=== PATIENT | female | born 1950 | race Caucasian/White ===

== ENCOUNTER 2023-08-16 08:47 | Outpatient (OUT) | payer MEDICARE, OTHER, SELFPAY ==
--- NOTE | 2023-08-16 08:59 | MM_ITS ---
Patient Name: HIRA POLO MR#: [id number] : 1950 Exam Date: 08/16/2023 Ordering Doctor: DR WOLF LEONARD M.D. RADIOLOGY REPORT PROCEDURE: MM TOMOSYNTHESIS SCREENING BI COMPARISON: MG MAMM SCREEN 3D KECIA CAD, 06/29/2022. MG MAMM SCREEN 3D [facility]IA CAD, 02/26/2021. MG MAMM SCREEN K[facility]IA W CAD, 12/12/2019. MG MAMM KECIA SCRN W CAD DIG, 04/08/2014. INDICATIONS: Screening Calculator Name NCI Breast Cancer Risk Assessment Tool 5 Year Breast Cancer Risk 2.00% Lifetime Breast Cancer Risk 4.80% Personal Breast Cancer No Personal Ovarian Cancer No Treatments None Family Cancers Father with stomach cancer at age 68; Mother with lymphoma cancer at age 83; Sister with throat cancer at age 55. LOCATION: [facility] BREAST COMPOSITION: The breasts are almost entirely fatty. FINDINGS: DIAGNOSTIC CATEGORY 1--NEGATIVE. RIGHT BREAST: No significant suspicious finding. No significant change has occurred. LEFT BREAST: No significant suspicious finding. No significant change has occurred. RECOMMENDATIONS: ROUTINE MAMMOGRAM AND CLINICAL EVALUATION IN 12 MONTHS. PLEASE NOTE: A NORMAL MAMMOGRAM DOES NOT EXCLUDE THE POSSIBILITY OF BREAST CANCER. A CLINICALLY SUSPICIOUS PALPABLE LUMP SHOULD BE BIOPSIED. Dictated by: Antony Lal M.D. on 08/17/2023 at 12:11 Approved by: Antony Lal M.D. on 08/17/2023 at 12:17
--- NOTE | 2023-08-16 09:04 | CT_ITS ---
[address] [address] Patient Name: HIRA POLO MRN: [id number] date: 1950 Sex: F Assigned Patient Location: MAMMO Current Patient Location: MAMMO Accession/Order Number: [id number] Exam Date: 08/16/2023 09:28 Report Date: 08/16/2023 11:59 At the request of: WOLF LEONARD Procedure: CT lung screening low-dose EXAMINATION: CT lung screening low-dose HISTORY: History Of Tobacco Dependence Z87.891 COMPARISON: CT LUNG CANCER SCREENING 06/29/2022, 02/26/2021, 10/30/2019 TECHNIQUE: Axial, Coronal, and Sagittal images were created without the administration of IV contrast material. Dose reduction techniques were achieved by using automated exposure control and/or adjustment of mA and/or kV according to patient size and/or use of iterative reconstruction technique. FINDINGS: LUNGS: Stable small area of stranding, likely scarring within anterior lateral aspect of right lower lobe just below level of the hilum. A few scattered granulomas. PLEURA: No mass, effusion, or pneumothorax. VASCULATURE: No abnormality. RACHEL: Calcified lymph nodes compatible with chronic granulomatous disease. MEDIASTINUM: Calcified lymph nodes. CARDIAC: No enlargement, pericardial thickening, or pericardial effusion. AORTA: No aneurysm or dissection. CHEST WALL: No mass or axillary adenopathy BONES: No bone lesion or fracture. LIMITED ABDOMEN: Moderate-large hiatal hernia. Limited images of the upper abdomen. OTHER: Negative. CT/CT lung screening low-dose IMPRESSION: 1. Lung-RADS 2- Benign Appearance or Behavior. Nodules with a very low likelihood of becoming a clinically active cancer due to size or lack of growth. Follow-up CT Chest in 1 year. Electronically authenticated by: BURAK RYAN Date: 08/16/2023 11:59
== END 2023-08-16 08:48 | disposition home or self-care (01) ==
LOC: MAMMO 08:47
PROVIDERS: PCP Family Medicine; Visit Provider Family Medicine
DX: Z12.31 Encounter for screening mammogram for malignant neoplasm of breast (principal); Z87.891 Personal history of nicotine dependence; Z80.0 Family history of malignant neoplasm of digestive organs; Z80.7 Family history of other malignant neoplasms of lymphoid, hematopoietic and related tissues; Z80.8 Family history of malignant neoplasm of other organs or systems
CPT/HCPCS: 71271; 77063; 77067

== ENCOUNTER 2024-11-06 12:30 | Outpatient (OUT) | payer MEDICARE, OTHER, SELFPAY ==
--- OUTSIDE RECORDS SUMMARY | 2023-09-07 06:37 | XMS_ITS | Continuity of Care Document ---
Author Organization [employer] [facility] Address [address] [facility] [place] [address] Phone Care Team Providers Care Adjunct Instructor Of Women'S Studies Name Role Phone Jourdan Sweet MD Unavailable Unavailable Allergies, Adverse Reactions, Alerts Substance Reaction Status Criticality PENICILLIN Active No Information Medications Medication Instructions Dosage Effective Dates (start - stop) Status Comments clindamycin HCl 300 mg capsule take 2 capsule by oral route every 1 hour before any dental procedure - Active omeprazole 40 mg capsule,delayed release take 1 capsule by oral route every day before a meal 40 MG - Active gabapentin 300 mg capsule take 1 capsule by oral route 3 times every day 300 MG - Active diclofenac sodium 75 mg tablet,delayed release take 1 tablet by oral route 2 times every day 75 MG - Active zinc sulfate 50 mg zinc (220 mg) tablet - Active Vitamin D3 25 mcg (1,000 unit) tablet - Active Multiple Vitamins tablet - Active Calcium 500 500 mg calcium (1,250 mg) chewable tablet - Active Procedures Procedure Date POSTOP FOLLOW-UP VISIT ([facility]) Betamethasone 6MG 4 DRAIN/INJECT, JOINT/BURSA OFFICE/OUTPATIENT VISIT, EST POSTOP FOLLOW-UP VISIT POSTOP FOLLOW-UP VISIT REVISE/REPLACE KNEE JOINT POSTOP FOLLOW-UP VISIT POSTOP FOLLOW-UP VISIT TOTAL KNEE ARTHROPLASTY CPTR-ASST DIR MS PX TOTAL KNEE ARTHROPLASTY OFFICE/OUTPATIENT VISIT, [facility] X-ray Exam Of Knee, 3 Views (Right Or Le ft) X-ray Exam Of Knee, 3 Views (Right Or Le ft) Advance Directives Directive Yes / No Effective Date File Name No Information Encounters Encounter Description Practice Location Reason(s) For Visit Diagnoses Date Provider Providers Copied on Encounter [facility] [employer] [facility], [address] [place] [address] [address], [place], [place], [id number] , [place] tel: [phone] [facility] No Information 4 Kee Soliman. [address] [facility] [address], [place], [place], [id number] , [place]. tel: [phone] [employer] [facility], [address] [facility] [address], [place], [place], [address] , [place] tel: [phone] [facility] Follow Up of Post-Op (chief complaint) Bilateral primary OA of kneeDehiscenc e of internal surgical wound, initial encounter 4 Kee Soliman. [address] [facility] [address], [place], [place], [id number] , [place]. tel: [phone] Referring Provider: Jourdan Daley, [address], [place], [address] . tel:[phone] OFFICE/OUTPA TIENT VISIT, [facility] [employer] [facility], [address] [facility] [address], [place], [place], [address] , [place] tel: [phone] [facility] Post-Op (chief complaint) Bilateral primary OA of knee 4 Leobardo Hernandez. [address], [place], [place], [id number] , [place]. tel:[phone] Referring Provider: David Booth PA-C, [address], [place], [address] . tel:[phone] [employer] [facility], [address] [facility] [address], [place], [place], [address] , [place] tel: [phone] [facility] Post-Op (chief complaint) Bilateral primary OA of kneeDehiscenc e of internal surgical wound, initial encounter 4 Leobardo Hernandez. [address], [place], [place], [address] , [place]. tel: [phone] Referring Provider: David Booth PA-C, [address], [place], [address] . tel:[phone] [facility] [employer] [facility], [address] [place] [address] [address], [place], [place], [address] , [place] tel: [phone] [facility] Follow Up of Post-Op (chief complaint) Bilateral primary OA of kneeDehiscenc e of internal surgical wound, initial encounter 3 Kee Soliman. [address], [place], [place], [address] , [place]. tel: [phone] Referring Provider: Jourdan Daley, [address], [place], [address] . tel:[phone] [employer] [facility], [address] [place] [address] [address], [place], [place], [address] , [place] tel: [phone] [facility] Bilateral primary OA of knee 3 Kee Soliman. [address], [place], [place], [address] , [place]. tel: [phone] [employer] [facility], [address] [place] [address] Road [address], [place], [place], [address] , [place] tel: [phone] [facility] OP No Information 3 Kee Soliman. [address], [place], [place], [address] , [place]. tel: [phone] Referring Provider: Jourdan Daley, [address], [place], [address] . tel:[phone] [employer] [facility], [address], [place], [address] , [place] tel: [phone] [facility] Follow Up of Post-Op (chief complaint) Bilateral primary OA of kneeDehiscenc e of internal surgical wound, initial encounter 3 Leobardo Hernandez. [address], [place], [place], [address] , [place]. tel: [phone] Referring Provider: David Booth PA-C, [address], [place], [address] . tel:[phone] [employer] [facility], [address], [place], [place], [address] , [place] tel: [phone] [facility] Post-Op (chief complaint) Bilateral primary OA of knee 3 Leobardo Hernandez. [address], [place], [place], [address] , [place]. tel:[phone] Referring Provider: David Booth PA-C, [address], [place], [address] . tel:[phone] [employer] [facility], [address], [place], [place], [address] , [place] tel: [phone] [facility] IP No Information 3 Kee Soliman. [address], [place], [place], [address] , [place]. tel:[phone] Referring Provider: Jourdan Daley, [address], [place], [address] . tel:[phone] [employer] [facility], [address], [place], [place], [address] , [place] tel: [phone] [facility] IP No Information 3 Leobardo Hernandez. [address], [place], [place], [address] , [place]. [phone] Referring Provider: David Booth PA-C, [address], [place], [address] . tel:[phone] OFFICE/OUTPA TIENT VISIT, [facility] [employer] [facility], [address] [facility] [address], [place], [place], [address] , [place] [phone] [facility] Musculoskeleta l Pain (chief complaint) Bilateral primary OA of knee 3 Kee Soliman. [address] [facility] [address], [place], [place], [address] , [place]. tel:[phone] Referring Provider: Jourdan Daley, [address] [facility] [address], [place], [address] . tel:[phone] Family History Family Member Type Diagnosis Age At Onset Problem Family history of Hypertensi on Problem Family history of Cancer, ga nik Problem Family history of Diabetes m vandana Problem Family history of Cardiovasc ular disease Payers Payer name Insurance type Covered republican ID Authoriza tion(s) Medicare MB [id number] [employer] [id number] Social History Type Description Quantity Date Captured Comments Alcohol Use Details Unknown Caffeine Use Details Unknown Tobacco Use Status Smoking Status No Information Sex Female Chief Complaint And Reason For Visit No Information Reason For Referral Reason For Referral No Information Plan Of Treatment Date Type Action Status Referral Ordered: Physical Therapy (related to Bilateral primary OA of knee) ordered Referral Ordered: Physical Therapy (related to Bilateral primary OA of knee) ordered Referral Referred To: Physical Therapy Ordered: Referrals: Physical Therapy. Evaluate and treat ordered Referral Ordered: X-ray Exam Of Knee, 3 Views (Right Or Left) ordered History Of Present Illness Encounter Date Complaint History Of Prese nt Illness Follow Up of Post-Op The patient reports pain in the Left knee. The pain level is 4/10. The patient is using medication. The patient reports no complications with the wound. The patient can ambulate without a device. Associated symptoms include swelling, weakness and tightness. Pertinent negatives include calf tenderness, chest pain, chills, constipation, fever and nausea. Additional information: She is 4 months s/p Left TKA on 03/06/23 with I&D and Arthrotomy repair on 04/05/23. Patient states she is having pain in the Left knee, stems from her back radiates to her hip and knee. She is taking Tylenol as needed for pain. Post-Op The patient repo rts pain. The pain level is 2/10. The patient is using medication as prescribed and having good response. The patient reports no complications with the wound. The patient can ambulate with straight cane. Associated symptoms include swelling. Pertinent negatives include numbness and tingling. Additional information: 3 week f/u 6 weeks s/p Left knee arthrotomy dehiscence repair on 04/05/23. Continues w/ HEP. Had a bad experience w/ PT and hyperflexed her knee so hasn't seen PT in about 1 week. Worst pain 3/10 w/ twisting and steps She would like a Right knee CSI today. Taking gabapentin and diclofenac. Needs a tooth fixed and wants to know if she can get it fixed. Has appt. for May. Post-Op The patient repo rts pain in the Left knee. The pain level is 0/10. The patient is using medication as needed and having good response. The patient can ambulate with cane. Associated symptoms include swelling. Pertinent negatives include chest pain, chills, fever, nausea and vomiting. Additional information: 1 week f/u, she is 3 weeks s/p Left knee I&D, poly exchange, + arthrotomy repair on 04/05/23. She has done light PT with the sutures in. Pain with activity can reach 3-4/10, relieved with Tylenol [place] Gabapentin. Follow Up of Post-Op The patient reports pain in the Left knee. The pain level is 3/10. The patient is using medication as needed The patient reports no complications with the wound. Associated symptoms include swelling. Pertinent negatives include chest pain, chills, constipation, dyspnea, fever, nausea and vomiting. Additional information: 2 weeks s/p Left TKA I&D, poly exchange, and arthrotomy closure on 04/05/2023. She is not getting PT. She is taking Tylenol as needed for pain. She start PT next week. Follow Up of Post-Op The patient reports pain in the Left knee. The pain level is 0/10. The patient is using medication and having good response. The patient can ambulate with walker PRN. Associated symptoms include swelling, popping, joint instability, weakness and. Pertinent negatives include chills, constipation and nausea. Additional information: 4 weeks s/p Left TKA on 03/06/23, She continues outpatient PT and is progressing well. She reports a shifting or movement in the knee, fells like something is moving out and popping back in, states its sharp pain she rates 10/10. . She is currently using an bakari bandage wrapped around her knee and lower leg. Post-Op The patient repo rts pain in the Left TKA. The pain level is 2/10. The patient is using medication and having good response. The patient can ambulate with cane. Associated symptoms include swelling. Pertinent negatives include chest pain, chills, constipation, fever, nausea and vomiting. Additional information: 9 days s/p Left TKA on 03/06/2023, She is getting in home PT and will be discharged on Monday and needs outpatient orders. She is taking Percocet as needed and the gabapentin as prescribed. She had a blister that popped on the medial aspect of the lower leg. Musculoskeletal Pain Onset: grad ual. Duration: varies. Severity level is 3. Location: bilateral knee. Context: there is no injury. The pain is aggravated by movement and standing. The pain is relieved by injection, OTC medicines (acetaminophen), rest, gabapentin and Diclofenac. Associated symptoms include decreased mobility, joint instability, joint tenderness, popping and weakness. Additional information: Longstanding Bilateral knee pain gradually worsening. She had CSI of michael knees 1 month ago, reports moderate improvements. lasting 2-3 months. She rates worst pain 10/10. She has a h/o spinal fusion and sees pain management for LBP. Functional Status Date Functional Assessmen t No Information Instructions Date Instruction Additional Infor miri Sonali is a 73-year -old female, 4 months status post left robotic assisted total knee arthroplasty and 3 months status post arthrotomy irrigation and closure.The patient has been doing physical therapy home exercises and has noticed improvement of her symptoms we at this point she is completely asymptomatic rating her pain as 0/10 . She is walking full weight-bearing with a cane. She is noticing exacerbation of the pain on her right knee. I discussed with the patient importance to continue active to maintain range of motion and strength as well as we discussed pre dental antibiotics We will see her back in 2 months for a 6 months follow-up to do a 1st x-ray of her left knee three views. The patient agreed with the plan all the questions were answered to her satisfaction. I am very glad that she was able to regain motion even though she had a tear over the arthrotomy which usually those patients have some limitation of the motion. Related to Bilateral primary OA of knee Patient returns for recheck of bilateral knees. She is approximately 3 months status post left total knee replacement in 4 weeks status post arthrotomy dehiscence repair. Patient is doing very well overall at this time she reports minimal pain. She has 4 sessions remaining of physical therapy she able to achieve about 115 of flexion and full extension in physical therapy. She reports minimal pain in the knee time.She does note some worsening right knee pain. She has longstanding history of osteoarthritis of the right knee and previously had corticosteroid injection about 6 months ago. She reports she is noticed returning pain over the past few weeks to the right knee.At this time I recommended a corticosteroid injection to the right knee in our office today. Patient agreed with the plan in the injection was performed in the office today under sterile conditions. Patient tolerated the procedure well.In regards to left knee I want her to continue working on home exercises as fall as finish her last few sessions of physical therapy. We discussed the importance of continuing daily home exercise program for knee motion and strength.Follow-up in our office in 4 weeks for final recheck with Dr. Sweet. Related to Bilateral primary OA of knee Patient returns for recheck of left knee she is almost 3 months status post left total knee replacement and 2 weeks status post left knee arthrotomy repair. She is doing very well overall she reports minimal pain at this time other than some mild lateral knee pain with knee flexion she reports snapping and dislocating sensation of the kneecap has completely resolved since surgery. She started working with physical therapy and has an appointment tonight.On physical exam surgical incision was well healing without signs of infection. Sutures were removed in the office today. Patient tolerated the procedure well. No palpable tears in her arthrotomy incision and improving range of motion of the knee.We discussed at this time I want her to and slowly and progressively with physical therapy working on knee flexion and extension we discussed the importance of gentle progression with her range of motion at this time. She should also continue daily home exercise program. We discussed surgical wound care instructions as well.Follow-up in our office in 3 weeks for recheck after therapy. Related to Dehiscence of internal surgical wound, initial encounter Sonali is a 72-year -old female, history of left knee arthrotomy tear that it was repaired surgical. The patient is coming today for 1st postop evaluation. She is walking full weight-bearing with a walker with the knee in full extension. After removal of the dressing that when interacting with no signs of active bleeding no bruising no bruising no signs of infection. She has mild flexion of the knee her compartments are soft and she is neurovascular distally intact. I discussed with the patient and her sister that this point we going to start next week physical therapy to regain range of motion and strength. We will see her back in a week to remove the stitches and see how she is doing. The patient agreed with the plan all questions were answered to her satisfaction. Related to Bilateral primary OA of knee Patient presents for recheck of left knee she is 4 weeks status post left total knee replacement. She is noticed some worsening knee pain with snapping and clicking sensation. She notes snapping sensation around the patella with flexion and extension of knee which causes significant pain. She notes 2 weeks ago she was taking her dog out when she sat down she felt a popping sensation in the knee. Evette have too much issues for a few days after that however recently she is noticed significant worsening of symptoms with popping and pain occurring multiple times a day.On physical exam she has a palpable tear of her arthrotomy which was not present at previous visit. She still has good active extension of the knee but she has subluxation of the patella with knee flexion and extension.We discussed at this time she has signs and symptoms of arthrotomy tear of the left knee. We discussed she will require open surgical repair of her torn arthrotomy in over to regain function of the knee. We reviewed the surgical procedure as well as risks associated with surgery including but not limited to infection, blood loss, vascular injury, nerve injury, pain, stiffness, blood clots, losing the leg, and . We discussed the high risk for postop stiffness after this type of procedure.We discussed she will remain in a knee immobilizer for 4-6 weeks after surgery.Follow-up in our office 7-10 days postoperatively for postop recheck. Related to Dehiscence of internal surgical wound, initial encounter Patient returns for recheck of left knee she is 12 days status post left total knee replacement. Doing well overall. She has been working with home physical therapy on range of motion strengthening of the knee but would like to start outpatient physical therapy next week. She reports only mild pain at this time. Taking narcotic pain medication only twice daily.On physical exam surgical incision is well healing without signs of infection. She has about 100 of flexion and full extension without pain good active extension of the knee.Discussed at this time I want her to continue working with physical therapy on range of motion strengthening of the knee as well as doing daily home exercise program. We will send order for outpatient physical therapy to start next week. We reviewed surgical care instructions. She can transition to Tylenol and return to her previous dose of gabapentin for pain control at this time. She is following with her shipyard painter helper in a few weeks.Follow-up in our office in 3 weeks for recheck. Related to Bilateral primary OA of knee Sonali is a 72-year -old female, history of long-standing bilateral knee pain that has been conservative treatment in another institution. She recently had a cortisone injection about a month ago with minimal improvement of the symptoms. The patient is noticing deterioration of her quality of life and limitation her activities of daily living. She is more symptomatic on the left and wants to discuss a surgical procedure.We review x-ray findings.The patient has severe arthritic changes that are more severe on the left side.We discussed at length a robotic assisted total knee arthroplasty as well as we discussed with Isaura our microbiology coordinator risks and benefits of the procedure including but not limited to anesthesia problems, infection, clots, stiffness, residual pain, fractures, loosening, need for further procedures, leg discrepancy, nerve injuries, vascular injury, losing the leg and . The patient voices understanding of the risks and decided to go ahead with surgeryShe has history of lower back pain and spinal stenosis. Related to Bilateral primary OA of knee Assessments Type Assessment Date No Information Patient Care Teams Name Effective Dates (start - stop) Status Members No Information
--- OUTSIDE RECORDS SUMMARY | 2024-11-06 12:41 | XMS_ITS | Encounter Summary ---
Author Organization [facility] Address [address] [place] [address] Care Team Providers Care Electrical Assembly Technician Name Role Phone Rosmery Dodd MD Primary Care Provider [phone] Rosmery Dodd MD Unavailable Monday, Kimberly SEARCH ENGINE OPTIMIZATION MANAGER Unavailable [phone] Pari Burk RN Unavailable Viera, Elva SEARCH ENGINE OPTIMIZATION MANAGER Unavailable Encounter Details Date Type Department Care Team (Late st Contact Info) Description 03/01/2023 Abstract [facility] 112 [facility] 110 [place] [phone] Rosmery Dodd MD [address] [facility] 110 [place], [place] [id number] Social History Tobacco Use Types Packs/Day Years Used Date Smoking Tobacco: Former Cigarettes Q uit: 07/23/2021 Alcohol Use Standard Drinks/Week Comments Yes 0 (1 standard drink = 0.6 oz pure alcohol) Alcohol: 2-4 times a month. Caffeine Intake: none PHQ-2 Answer Date Recorded Patient Health Questionnaire-2 Score 0 02/04/2023 Education Answer Date Recorded What is the highest level of school you have completed or the highest degree you have received? High school graduate 09/08/2022 Comments Unknown Sex and Gender Information Value Date Recorded Sex Assigned at Female 09/05/2022 3:12 PM EDT Legal Sex Female 6:47 PM EDT Gender Identity Female 09/05/2022 3:12 PM EDT Sexual Orientation Not on file documented as of this encounter Plan of Treatment Not on file documented as of this encounter Visit Diagnoses Not on filedocumented in this encounter Care Teams Electrical Assembly Technician Relationship Specialty Start Date End Date Rosmery Dodd MD [address] [place] [address] PCP - General Family Medicine 09/15/22 Rosmery Dodd MD [address] [place] [address] PCP - ACO Reach 09/15/22Monday, SKINNY Harris [address] [place] [address] Licensed Practical Nurse Family Medicine 12/07/23 Pari Burk RN [address] [place] [address] Licensed Practical Nurse Family Medicine 05/31/2407/12 Elva Viera LPN [address] [facility] 110 [place] [address] 07/12/24 documented as of this encounter
--- OUTSIDE RECORDS SUMMARY | 2024-11-06 12:41 | XMS_ITS | Encounter Summary ---
Author Organization [facility] Address [address] [place] [address] Care Team Providers Care Wire Border Assembler Name Role Phone Rosmery Dodd MD Primary Care Provider [phone] Rosmery Dodd MD Unavailable Monday, Kimberly GUEST REQUEST RUNNER Unavailable [phone] Pari Burk RN Unavailable Viera, Elva GUEST REQUEST RUNNER Unavailable Encounter Details Date Type Department Care Team (Late st Contact Info) Description 03/20/[address] [facility] [address] [facility] 110 [place] [address] Rosmery Dodd MD 112 [facility] 110 [place], [place] [address] Social History Tobacco Use Types Packs/Day Years Used Date Smoking Tobacco: Former Cigarettes Q uit: 07/23/2021 Alcohol Use Standard Drinks/Week Comments Yes 0 (1 standard drink = 0.6 oz pure alcohol) Alcohol: 2-4 times a month. Caffeine Intake: none B1300 Health Literacy Answer Date Recor ded How often do you need to hav e someone help you when you read instructions, pamphlets, or other written material from your doctor or pharmacy? Never 01/15/2024 PHQ-2 Answer Date Recorded Patient Health Questionnaire-2 Score 0 02/04/2023 Hunger Vital Sign Answer Date Recorded Within the past 12 months, y ou worried that your food would run out before you got the money to buy more. Never true 01/15/20 24 Within the past 12 months, t he food you bought just didn't last and you didn't have money to get more. Never true 01/15/2024 PRAPARE - Transportation Answer Date Re corded In the past 12 months, has l ack of transportation kept you from medical appointments or from getting medications? No 12/24 In the past 12 months, has l ack of transportation kept you from meetings, work, or from getting things needed for daily living? No 01/15/2024 Education Answer Date Recorded What is the [...] Diagnoses Not on filedocumented in this encounter Additional Health Concerns Assessment Noted Time PHQ-9 Depression Total Score: 0 07/12/19 24 3:00 PM EDT documented as of this encounter Care Teams Wire Border Assembler Relationship Specialty Start Date End Date Rosmery Dodd MD [address] [place] [address] PCP - General Family Medicine 09/15/22 Rosmery Dodd MD [address] [place] [address] PCP - ACO Reach 09/15/22MondayKimberly LPN [address] [place] [address] Licensed Practical Nurse Family Medicine 12/07/23 Pari Burk, RN [address] [place] [address] Licensed Practical Nurse Family Medicine 05/31/2407/12 Elva Viera LPN [address] [place] [address] 07/12/24 documented as of this encounter
--- OUTSIDE RECORDS SUMMARY | 2024-11-06 12:41 | XMS_ITS | Encounter Summary ---
Author Organization [facility] Address [address] [place] [address] Care Team Providers Care Calender Supervisor Name Role Phone Rosmery Dodd MD Primary Care Provider [phone] Rosmery Dodd MD Unavailable Monday, Kimberly SEROLOGIST Unavailable [phone] Pari Burk RN Unavailable Viera, Elva SEROLOGIST Unavailable Encounter Details Date Type Department Care Team (Late st Contact Info) Description 04/05/2024 Abstract [facility] 112 [facility] 110 [place] [address] Rosmery Dodd MD 112 [facility] 110 [place], [place] [address] Social History Tobacco Use Types Packs/Day Years [...] documented as of this encounter Care Teams Calender Supervisor Relationship Specialty Start Date End Date Rosmery Dodd MD [address] [place] [address] PCP - General Family Medicine 09/15/22 Rosmery Dodd MD [address] [place] [address] PCP - ACO Reach 09/15/22MondayKimberly LPN [address] [place] [address] Licensed Practical Nurse Family Medicine 12/07/23 Pari Burk, RN [address] [place] [address] Licensed Practical Nurse Family Medicine 05/31/2407/12 Elva Viera LPN [address] [place] [address] 07/12/24 documented as of this encounter
--- OUTSIDE RECORDS SUMMARY | 2024-11-06 12:41 | XMS_ITS | Encounter Summary ---
Author Organization [facility] Address [address] [place] [address] Care Team Providers Care Dietary Server Name Role Phone Rosmery Dodd MD Primary Care Provider [phone] Rosmery Dodd MD Unavailable Monday, Kimberly WINDOWS SYSTEMS ARCHITECT Unavailable [phone] Pari Burk RN Unavailable [phone] Viera, Elva WINDOWS SYSTEMS ARCHITECT Unavailable Encounter Details Date Type Department Care Team (Late st Contact Info) Description 03/20/2024 Abstract [facility] 112 [facility] 110 [place] [address] Rosmery Dodd MD 112 [facility] 110 [place], [place] [address] Social History Tobacco Use Types Packs/Day Years [...] documented as of this encounter Care Teams Dietary Server Relationship Specialty Start Date End Date Rosmery Dodd MD [address] [place] [address] PCP - General Family Medicine 09/15/22 Rosmery Dodd MD [address] [place] [address] PCP - ACO Reach 09/15/22MondayKimberly LPN [address] [place] [address] Licensed Practical Nurse Family Medicine 12/07/23 Pari Burk, RN [address] [place] [address] Licensed Practical Nurse Family Medicine 05/31/2407/12 Elva Viera LPN [address] [place] [address] 07/12/24 documented as of this encounter
--- OUTSIDE RECORDS SUMMARY | 2024-11-06 12:41 | XMS_ITS | Encounter Summary ---
Author Organization [facility] Address [address] [place] [address] Care Team Providers Care Practice Advisor Name Role Phone Rosmery Dodd MD Primary Care Provider [phone] Rosmery Dodd MD Unavailable Monday, Kimberly TOMBSTONE ERECTOR HELPER Unavailable Pari Burk RN Unavailable Viera, Elva TOMBSTONE ERECTOR HELPER Unavailable Encounter Details Date Type Department Care Team (Late st Contact Info) Description 04/02/2024 Abstract [facility] 112 [facility] 110 [place] [address] Rosmery Dodd MD 112 [facility] 110 [place], [place] [address] Social History Tobacco Use Types Packs/Day Years [...] documented as of this encounter Care Teams Practice Advisor Relationship Specialty Start Date End Date Rosmery Dodd MD [address] [place] [address] PCP - General Family Medicine 09/15/22 Rosmery Dodd MD [address] [place] [address] PCP - ACO Reach 09/15/22MondayKimberly LPN [address] [place] [address] Licensed Practical Nurse Family Medicine 12/07/23 Pari Burk, RN [address] [place] [address] Licensed Practical Nurse Family Medicine 05/31/2407/12 Elva Viera LPN [address] [place] [address] 07/12/24 documented as of this encounter
--- OUTSIDE RECORDS SUMMARY | 2024-11-06 12:41 | XMS_ITS | Encounter Summary ---
Author Organization [facility] Address [address] [place] [address] Care Team Providers Care Associate Professor Of English Name Role Phone Rosmery Dodd MD Primary Care Provider [phone] Rosmery Dodd MD Unavailable Monday, Kimberly ARTILLERY OFFICER Unavailable [phone] Pari Burk RN Unavailable Viera, Elva ARTILLERY OFFICER Unavailable Encounter Details Date Type Department Care Team (Late st Contact Info) Description 05/09/2024 Abstract [facility] 112 [facility] 110 [place] [address] Rosmery Dodd MD 112 [facility] 110 [place], [place] [address] Social History Tobacco Use Types Packs/Day Years [...] documented as of this encounter Care Teams Associate Professor Of English Relationship Specialty Start Date End Date Rosmery Dodd MD [address] [place] [address] PCP - General Family Medicine 09/15/22 Rosmery Dodd MD [address] [place] [address] PCP - ACO Reach 09/15/22MondayKimberly LPN [address] [place] [address] Licensed Practical Nurse Family Medicine 12/07/23 Pari Burk, RN [address] [place] [address] Licensed Practical Nurse Family Medicine 05/31/2407/12 Elva Viera LPN [address] [place] [address] 07/12/24 documented as of this encounter
--- OUTSIDE RECORDS SUMMARY | 2024-11-06 12:41 | XMS_ITS | Encounter Summary ---
Author Organization [facility] Address [address] [place] [address] Care Team Providers Care Washtub Worker Helper Name Role Phone Rosmery Dodd MD Primary Care Provider [phone] Rosmery Dodd MD Unavailable Monday, Kimberly BELL HOLE DIGGER Unavailable [phone] Pari Burk RN Unavailable [phone] Viera, Elva BELL HOLE DIGGER Unavailable Encounter Details Date Type Department Care Team (Late st Contact Info) Description 04/22/2024 Abstract [facility] 112 [facility] 110 [place] [address] Rosmery Dodd MD 112 [facility] 110 [place], [place] [address] Social History Tobacco Use Types Packs/Day Years [...] documented as of this encounter Care Teams Washtub Worker Helper Relationship Specialty Start Date End Date Rosmery Dodd MD [address] [place] [address] PCP - General Family Medicine 09/15/22 Rosmery Dodd MD [address] [place] [address] PCP - ACO Reach 09/15/22MondayKimberly LPN [address] [place] [address] Licensed Practical Nurse Family Medicine 12/07/23 Pari Burk, RN [address] [place] [address] Licensed Practical Nurse Family Medicine 05/31/2407/12 Elva Viera LPN [address] [place] [address] 07/12/24 documented as of this encounter
--- OUTSIDE RECORDS SUMMARY | 2024-11-06 12:41 | XMS_ITS | Encounter Summary ---
Author Organization [facility] Address [address] [place] [address] Care Team Providers Care Manager Assurance Name Role Phone Rosmery Dodd MD Primary Care Provider [phone] Rosmery Dodd MD Unavailable Elva Viera LPN Unavailable Encounter Details Date Type Department Care Team (Late st Contact Info) Description 08/01/2024 Abstract [facility] 112 [facility] 110 [place] [address] Rosmery Dodd MD 112 [facility] 110 [place], [place] [address] Social History Tobacco Use Types Packs/Day Years [...] Time PHQ-9 Depression Total Score: 0 07/12/19 3:00 PM EDT documented as of this encounter Care Teams Manager Assurance Relationship Specialty Start Date End Date Rosmery Dodd MD [address] [address] PCP - General Family Medicine 09/15/22 Rosmery Dodd MD [address] [facility] 110 [place] [address] PCP - ACO Reach 09/15/22 Elva Viera LPN [address] [address] 07/12/24 documented as of this encounter
--- OUTSIDE RECORDS SUMMARY | 2024-11-06 12:41 | XMS_ITS | Encounter Summary ---
Author Organization [facility] Address [address] [place] [address] Care Team Providers Care Clinic Administrator Name Role Phone Rosmery Dodd MD Primary Care Provider [phone] Rosmery Dodd MD Unavailable Monday, Kimberly MANAGER PATIENT Unavailable [phone] Pari Burk RN Unavailable Viera, Elva MANAGER PATIENT Unavailable Encounter Details Date Type Department Care Team (Late st Contact Info) Description 05/27/2024 Abstract [facility] 112 [facility] 110 [place] [address] Rosmery Dodd MD 112 [facility] 110 [place], [place] [address] Social History Tobacco Use Types Packs/Day Years [...] documented as of this encounter Care Teams Clinic Administrator Relationship Specialty Start Date End Date Rosmery Dodd MD [address] [place] [address] PCP - General Family Medicine 09/15/22 Rosmery Dodd MD [address] [place] [address] PCP - ACO Reach 09/15/22MondayKimberly LPN [address] [place] [address] Licensed Practical Nurse Family Medicine 12/07/23 Pari Burk, RN [address] [place] [address] Licensed Practical Nurse Family Medicine 05/31/2407/12 Elva Viera LPN [address] [place] [address] 07/12/24 documented as of this encounter
--- OUTSIDE RECORDS SUMMARY | 2024-11-06 12:41 | XMS_ITS | Encounter Summary ---
Author Organization [facility] Address [address] [place] [address] Care Team Providers Care Supervisor Framing Mill Name Role Phone Rosmery Dodd MD Primary Care Provider [phone] Rosmery Dodd MD Unavailable Monday, Kimberly CONE WINDER Unavailable [phone] Pari Burk RN Unavailable Viera, Elva CONE WINDER Unavailable Encounter Details Date Type Department Care Team (Late st Contact Info) Description 05/02/2024 Abstract [facility] [address] [facility] 110 [place] [address] Rosmery Dodd MD 112 [facility] 110 [place], [place] [address] Social History Tobacco Use Types Packs/Day Years [...] documented as of this encounter Care Teams Supervisor Framing Mill Relationship Specialty Start Date End Date Rosmery Dodd MD [address] [place] [address] PCP - General Family Medicine 09/15/22 Rosmery Dodd MD [address] [place] [address] PCP - ACO Reach 09/15/22MondayKimberly LPN [address] [place] [address] Licensed Practical Nurse Family Medicine 12/07/23 Pari Burk, RN [address] [place] [address] Licensed Practical Nurse Family Medicine 05/31/2407/12 Elva Viera LPN [address] [place] [address] 07/12/24 documented as of this encounter
--- OUTSIDE RECORDS SUMMARY | 2024-11-06 12:41 | XMS_ITS | Encounter Summary ---
Author Organization [facility] Address [address] [place] [address] Care Team Providers Care Yarder Operator Name Role Phone Rosmery Dodd MD Primary Care Provider [phone] Rosmery Dodd MD Unavailable Monday, Kimberly DECORATIVE ENGRAVER Unavailable [phone] Pari Burk RN Unavailable [phone] Viera, Elva DECORATIVE ENGRAVER Unavailable Encounter Details Date Type Department Care Team (Late st Contact Info) Description 04/08/2024 Abstract [facility] 112 [facility] 110 [place] [address] Rosmery Dodd MD 112 [facility] 110 [place], [place] [address] Social History Tobacco Use Types Packs/Day Years [...] documented as of this encounter Care Teams Yarder Operator Relationship Specialty Start Date End Date Rosmery Dodd MD [address] [place] [address] PCP - General Family Medicine 09/15/22 Rosmery Dodd MD [address] [place] [address] PCP - ACO Reach 09/15/22MondayKimberly LPN [address] [place] [address] Licensed Practical Nurse Family Medicine 12/07/23 Pari Burk, RN [address] [place] [address] Licensed Practical Nurse Family Medicine 05/31/2407/12 Elva Viera LPN [address] [place] [address] 07/12/24 documented as of this encounter
--- OUTSIDE RECORDS SUMMARY | 2024-11-06 12:41 | XMS_ITS | Encounter Summary ---
Author Organization [facility] Address [address] [place] [address] Care Team Providers Care Brazing Machine Operator Helper Name Role Phone Rosmery Dodd MD Primary Care Provider [phone] Rosmery Dodd MD Unavailable Monday, Kimberly EXECUTIVE OFFICER SPECIAL WARFARE TEAM Unavailable [phone] Pari Burk RN Unavailable Viera, Elva EXECUTIVE OFFICER SPECIAL WARFARE TEAM Unavailable Encounter Details Date Type Department Care Team (Late st Contact Info) Description 04/02/2024 Abstract [facility] 112 [facility] 110 [place] [address] Rosmery Dodd MD 112 [facility] 110 [place], [place] [address] Social History Tobacco Use Types Packs/Day Years [...] documented as of this encounter Care Teams Brazing Machine Operator Helper Relationship Specialty Start Date End Date Rosmery Dodd MD [address] [place] [address] PCP - General Family Medicine 09/15/22 Rosmery Dodd MD [address] [place] [address] PCP - ACO Reach 09/15/22MondayKimberly LPN [address] [place] [address] Licensed Practical Nurse Family Medicine 12/07/23 Pari Burk, RN [address] [place] [address] Licensed Practical Nurse Family Medicine 05/31/2407/12 Elva Viera LPN [address] [place] [address] 07/12/24 documented as of this encounter
--- OUTSIDE RECORDS SUMMARY | 2024-11-06 12:41 | XMS_ITS | Encounter Summary ---
Author Organization [facility] Address [address] [place] [address] Care Team Providers Care Personalized Living Assistant Name Role Phone Rosmery Dodd MD Primary Care Provider [phone] Rosmery Dodd MD Unavailable Monday, Kimberly JOB SETTER HONING Unavailable [phone] Pari Burk RN Unavailable [phone] Viera, Elva JOB SETTER HONING Unavailable Encounter Details Date Type Department Care Team (Late st Contact Info) Description 03/20/2024 Abstract [facility] 112 [facility] 110 [place] [address] Rosmery Dodd MD 112 [facility] 110 [place], [place] [address] Social History Tobacco Use Types Packs/Day Years [...] documented as of this encounter Care Teams Personalized Living Assistant Relationship Specialty Start Date End Date Rosmery Dodd MD [address] [place] [address] PCP - General Family Medicine 09/15/22 Rosmery Dodd MD [address] [place] [address] PCP - ACO Reach 09/15/22MondayKimberly LPN [address] [place] [address] Licensed Practical Nurse Family Medicine 12/07/23 Pari Burk, RN [address] [place] [address] Licensed Practical Nurse Family Medicine 05/31/2407/12 Elva Viera LPN [address] [place] [address] 07/12/24 documented as of this encounter
--- OUTSIDE RECORDS SUMMARY | 2024-11-06 12:41 | XMS_ITS | Encounter Summary ---
Author Organization [facility] Address [address] [place] [address] Care Team Providers Care Rail Grinder Name Role Phone Rosmery Dodd MD Primary Care Provider [phone] Rosmery Dodd MD Unavailable Monday, Kimberly REIMBURSEMENT SPEC Unavailable [phone] Pari Burk RN Unavailable [phone] Viera, Elva REIMBURSEMENT SPEC Unavailable Encounter Details Date Type Department Care Team (Late st Contact Info) Description 05/27/2024 Abstract [facility] 112 [facility] 110 [place] [address] Rosmery Dodd MD 112 [facility] 110 [place], [place] [address] Social History Tobacco Use Types Packs/Day Years [...] documented as of this encounter Care Teams Rail Grinder Relationship Specialty Start Date End Date Rosmery Dodd MD [address] [place] [address] PCP - General Family Medicine 09/15/22 Rosmery Dodd MD [address] [place] [address] PCP - ACO Reach 09/15/22MondayKimberly LPN [address] [place] [address] Licensed Practical Nurse Family Medicine 12/07/23 Pari Burk, RN [address] [place] [address] Licensed Practical Nurse Family Medicine 05/31/2407/12 Elva Viera LPN [address] [place] [address] 07/12/24 documented as of this encounter
--- OUTSIDE RECORDS SUMMARY | 2024-11-06 12:42 | XMS_ITS | Encounter Summary ---
Author Organization [facility] Address [address] [place] [address] Care Team Providers Care Community Relations Director Name Role Phone Rosmery Dodd MD Primary Care Provider [phone] Rosmery Dodd MD Unavailable Monday, Kimberly QUANTITATIVE MANAGER Unavailable [phone] Pari Burk RN Unavailable Viera, Elva QUANTITATIVE MANAGER Unavailable Encounter Details Date Type Department Care Team (Late st Contact Info) Description 03/13/2024 Abstract [facility] 112 [facility] 110 [place] [address] Rosmery Dodd MD 112 [facility] 110 [place], [place] [address] Social History Tobacco Use Types Packs/Day Years [...] documented as of this encounter Care Teams Community Relations Director Relationship Specialty Start Date End Date Rosmery Dodd MD [address] [place] [address] PCP - General Family Medicine 09/15/22 Rosmery Dodd MD [address] [place] [address] PCP - ACO Reach 09/15/22MondayKimberly LPN [address] [place] [address] Licensed Practical Nurse Family Medicine 12/07/23 Pari Burk, RN [address] [place] [address] Licensed Practical Nurse Family Medicine 05/31/2407/12 Elva Viera LPN [address] [place] [address] 07/12/24 documented as of this encounter
--- OUTSIDE RECORDS SUMMARY | 2024-11-06 12:42 | XMS_ITS | Encounter Summary ---
Author Organization [facility] Address [address] [place] [place] [address] Care Team Providers Care Internetworking Technician Name Role Phone Rosmery Dodd MD Primary Care Provider [phone] Rosmery Dodd MD Unavailable Monday, Kimberly POCKET FLAP CREASING MACHINE OPERATOR Unavailable [phone] Pari Burk RN Unavailable Viera, Elva POCKET FLAP CREASING MACHINE OPERATOR Unavailable Encounter Details Date Type Department Care Team (Late st Contact Info) Description 02/19/2024 Abstract [facility] 112 [facility] 110 [place] [address] Rosmery Dodd MD 112 [facility] 110 [place], [place] [address] Social History Tobacco Use Types Packs/Day Years [...] documented as of this encounter Care Teams Internetworking Technician Relationship Specialty Start Date End Date Rosmery Dodd MD [address] [place] [address] PCP - General Family Medicine 09/15/22 Rosmery Dodd MD [address] [place] [address] PCP - ACO Reach 09/15/22MondayKimberly LPN [address] [place] [address] Licensed Practical Nurse Family Medicine 12/07/23 Pari Burk, RN [address] [place] [address] Licensed Practical Nurse Family Medicine 05/31/2407/12 Elva Viera LPN [address] [place] [address] 07/12/24 documented as of this encounter
--- OUTSIDE RECORDS SUMMARY | 2024-11-06 12:42 | XMS_ITS | Encounter Summary ---
Author Organization [facility] Address [address] [place] [address] Care Team Providers Care Executive Candidate Developer Name Role Phone Rosmery Dodd MD Primary Care Provider [phone] Rosmery Dodd MD Unavailable Monday, Kimberly PARTS REPRESENTATIVE Unavailable [phone] Pari Burk RN Unavailable [phone] Viera, Elva PARTS REPRESENTATIVE Unavailable Encounter Details Date Type Department Care Team (Late st Contact Info) Description 03/20/2024 Abstract [facility] 112 [facility] 110 [place] [address] Rosmery Dodd MD 112 [facility] 110 [place], [place] [address] Social History Tobacco Use Types Packs/Day Years [...] documented as of this encounter Care Teams Executive Candidate Developer Relationship Specialty Start Date End Date Rosmery Dodd MD [address] [place] [address] PCP - General Family Medicine 09/15/22 Rosmery Dodd MD [address] [place] [address] PCP - ACO Reach 09/15/22MondayKimberly LPN [address] [place] [address] Licensed Practical Nurse Family Medicine 12/07/23 Pari Burk, RN [address] [place] [address] Licensed Practical Nurse Family Medicine 05/31/2407/12 Elva Viera LPN [address] [place] [address] 07/12/24 documented as of this encounter
--- OUTSIDE RECORDS SUMMARY | 2024-11-06 12:42 | XMS_ITS | Encounter Summary ---
Author Organization [facility] Address [address] [place] [address] Care Team Providers Care Flanging Operator Name Role Phone Rosmery Dodd MD Primary Care Provider [phone] Rosmery Dodd MD Unavailable Monday, Kimberly SOUND RANGING CREWMEMBER Unavailable [phone] Pari Burk RN Unavailable Viera, Elva SOUND RANGING CREWMEMBER Unavailable Encounter Details Date Type Department Care Team (Late st Contact Info) Description 02/27/2024 Abstract [facility] 112 [facility] 110 [place] [address] Rosmery Dodd MD 112 [facility] 110 [place], [place] [address] Social History Tobacco Use Types Packs/Day Years [...] documented as of this encounter Care Teams Flanging Operator Relationship Specialty Start Date End Date Rosmery Dodd MD [address] [place] [address] PCP - General Family Medicine 09/15/22 Rosmery Dodd MD [address] [place] [address] PCP - ACO Reach 09/15/22MondayKimberly LPN [address] [place] [address] Licensed Practical Nurse Family Medicine 12/07/23 Pari Burk, RN [address] [place] [address] Licensed Practical Nurse Family Medicine 05/31/2407/12 Elva Viera LPN [address] [place] [address] 07/12/24 documented as of this encounter
--- OUTSIDE RECORDS SUMMARY | 2024-11-06 12:42 | XMS_ITS | Encounter Summary ---
Author Organization [facility] Address [address] [place] [address] Care Team Providers Care Supervisor Toy Parts Former Name Role Phone Rosmery Dodd MD Primary Care Provider [phone] Rosmery Dodd MD Unavailable Monday, Kimberly TELEPHONIC NURSE Unavailable [phone] Pari Burk RN Unavailable [phone] Viera, Elva TELEPHONIC NURSE Unavailable Encounter Details Date Type Department Care Team (Late st Contact Info) Description 01/17/2024 Abstract [facility] 112 [facility] 110 [place] [address] Rosmery Dodd MD 112 [facility] 110 [place], [place] [address] Social History Tobacco Use Types Packs/Day Years [...] as of this encounter Care Teams Supervisor Toy Parts Former Relationship Specialty Start Date End Date Rosmery Dodd MD [address] [place] [address] PCP - General Family Medicine 09/15/22 Rosmery Dodd MD [address] [place] [address] PCP - ACO Reach 09/15/22MondayKimberly LPN [address] [place] [address] Licensed Practical Nurse Family Medicine 12/07/23 Pari Burk, RN [address] [place] [address] Licensed Practical Nurse Family Medicine 05/31/2407/12 Elva Viera LPN [address] [place] [address] 07/12/24 documented as of this encounter
--- OUTSIDE RECORDS SUMMARY | 2024-11-06 12:42 | XMS_ITS | Encounter Summary ---
Author Organization [facility] Address [address] [place] [address] Care Team Providers Care Roll On Man Name Role Phone Rosmery Dodd MD Primary Care Provider [phone] Rosmery Dodd MD Unavailable Monday, Kimberly METAL DEALER Unavailable [phone] Pari Burk RN Unavailable Viera, Elva METAL DEALER Unavailable Encounter Details Date Type Department Care Team (Late st Contact Info) Description 09/19/2023 Abstract [facility] 112 [facility] 110 [place] [address] Rosmery Dodd MD 112 [facility] 110 [place], [place] [address] Social History Tobacco Use Types Packs/Day Years [...] documented as of this encounter Care Teams Roll On Man Relationship Specialty Start Date End Date Rosmery Dodd MD [address] [place] [address] PCP - General Family Medicine 09/15/22 Rosmery Dodd MD [address] [place] [address] PCP - ACO Reach 09/15/22MondayKimberly LPN [address] [place] [address] Licensed Practical Nurse Family Medicine 12/07/23 Pari Burk, RN [address] [place] [address] Licensed Practical Nurse Family Medicine 05/31/2407/12 Elva Viera LPN [address] [place] [address] 07/12/24 documented as of this encounter
--- OUTSIDE RECORDS SUMMARY | 2024-11-06 12:42 | XMS_ITS | Encounter Summary ---
Author Organization [facility] Address [address] [place] [address] Care Team Providers Care Plaster Applicator Name Role Phone Rosmery Dodd MD Primary Care Provider [phone] Rosmery Dodd MD Unavailable Monday, Kimberly SERVICE ARCHITECT Unavailable [phone] Pari Burk RN Unavailable [phone] Viera, Elva SERVICE ARCHITECT Unavailable Encounter Details Date Type Department Care Team (Late st Contact Info) Description 02/20/2023 Abstract [facility] 112 [facility] 110 [place] [address] Rosmery Dodd MD 112 [facility] 110 [place], [place] [address] Social History Tobacco Use Types Packs/Day Years [...] on filedocumented in this encounter Care Teams Plaster Applicator Relationship Specialty Start Date End Date Rosmery Dodd MD [address] [place] [address] PCP - General Family Medicine 09/15/22 Rosmery Dodd MD [address] [place] [address] PCP - ACO Reach 09/15/22Monday, SKINNY Harris [address] [place] [address] Licensed Practical Nurse Family Medicine 12/07/23 Pari Burk RN [address] [place] [address] Licensed Practical Nurse Family Medicine 05/31/2407/12 Elva Viera LPN [address] [facility] 110 [place] [address] 07/12/24 documented as of this encounter
--- OUTSIDE RECORDS SUMMARY | 2024-11-06 12:42 | XMS_ITS | Encounter Summary ---
Author Organization [facility] Address [address] [place] [address] Care Team Providers Care Biology Research Assistant Name Role Phone Rosmery Leonard MD Primary Care Provider [phone] Rosmery Leonard MD Unavailable Monday, Kimberly PERSONAL CARER Unavailable [phone] Pari Burk RN Unavailable [phone] Viera, Elva PERSONAL CARER Unavailable Encounter Details Date Type Department Care Team (Late st Contact Info) Description 08/16/2023 Clinisync Result Encounter [facility] External Department Unsolicited Rosmery Leonard MD [address] [address] Social History Tobacco Use Types Packs/Day Years [...] on file documented as of this encounter Procedures Procedure Name Priority Date/Time Associated Diagnosis Comments CT LUNG SCREENING LOW DOSE 08/16/2023 11:59 AM EDT documented in this encounter Results * CT LUNG SCREENING LOW DOSE (08/16/2023 11:59 AM EDT) Anatomical Region Laterality Modality Other 08/16/2023 11:5 9 AM EDT Narrative 08/16/2023 12:01 [place] [address] CT Scan Report Signed Patient: SONALI POLO MR#: [id number] : 1950 Acct:[id number] Age/Sex: 73 / F ADM Date: 08/16/23 Loc: [facility] Attending Dr: ROSMERY LEONARD Ordering Physician: ROSMERY LEONARD Date of Service: 08/16/23 Procedure(s): CT lung screening low-dose Accession Number(s): [id number] cc: ROSMERY LEONARD [place] [address] Patient Name: SONALI POLO MRN: [id number] date: 1950 Sex: F Assigned Patient Location: [facility]MO Current Patient Location: [facility] Accession/Order Number: [id number] Exam Date: 08/16/2023 09:28 Report Date: 08/16/2023 11:59 At the request of: ORSMERY LEONARD Procedure: CT lung screening low-dose EXAMINATION: CT lung screening low-dose HISTORY: History Of Tobacco Dependence Z87.891 COMPARISON: CT LUNG CANCER SCREENING 06/29/2022, 02/26/2021, 10/30/2019 TECHNIQUE: Axial, Coronal, and Sagittal images were created without the administration of IV contrast material. Dose reduction techniques were achieved by using automated exposure control and/or adjustment of mA and/or kV according to patient size and/or use of iterative reconstruction technique. FINDINGS: LUNGS: Stable small area of stranding, likely scarring within anterior lateral aspect of right lower lobe just below level of the hilum. A few scattered granulomas. PLEURA: No mass, effusion, or pneumothorax. VASCULATURE: No abnormality. RACHEL: Calcified lymph nodes compatible with chronic granulomatous disease. MEDIASTINUM: Calcified lymph nodes. CARDIAC: No enlargement, pericardial thickening, or pericardial effusion. AORTA: No aneurysm or dissection. CHEST WALL: No mass or axillary adenopathy BONES: No bone lesion or fracture. LIMITED ABDOMEN: Moderate-large hiatal hernia. Limited images of the upper abdomen. OTHER: Negative. CT/CT lung screening low-dose IMPRESSION: 1. Lung-RADS 2- Benign Appearance or Behavior. Nodules with a very low likelihood of becoming a clinically active cancer due to size or lack of growth. Follow-up CT Chest in 1 year. Electronically authenticated by: BURAK LAL Date: 08/16/2023 11:59 Dictated By: Burak Lal M.D. Signed By: 08/16/23 1201 DD/ 1159 TD/TT: Financial Services Officer: Procedure Note Radiology, Radiologist, MD - 08/16/2023 [place] [address] CT Scan Report Signed Patient: SONALI POLO LMR#: [id number] : 1950cct:[id number] Age/Sex: 73 / FADM Date: 08/16/23 Loc: [facility] Attending Dr: ROSMERY LEONARD Ordering Physician: ROSMERY LEONARD Date of Service: 08/16/23 Procedure(s): CT lung screening low-dose Accession Number(s): [id number] cc: ROSMERY LEONARD [place] [address] Patient Name: SONALI POLO MRN: [id number] date: 1950 Sex: F Assigned Patient Location: MAMMO Current Patient Location: [facility]MO Accession/Order Number: [id number] Exam Date: 08/16/2023 09:28 Report Date: 08/16/2023 11:59 At the request of: ROSMERY LEONARD Procedure: CT lung screening low-dose EXAMINATION: CT lung screening low-dose HISTORY: History Of Tobacco Dependence Z87.891 COMPARISON: CT LUNG CANCER SCREENING 06/29/2022, 02/26/2021, 10/30/2019 TECHNIQUE: Axial, Coronal, and Sagittal images were created without the administration of IV contrast material. Dose reduction techniques were achieved by using automated exposure control and/or adjustment of mA and/or kV according to patient size and/or use of iterative reconstruction technique. FINDINGS: LUNGS: Stable small area of stranding, likely scarring within anteriorlateral aspect of right lower lobe just below level of the hilum. A few scattered granulomas. PLEURA: No mass, effusion, or pneumothorax. VASCULATURE: No abnormality. RACHEL: Calcified lymph nodes compatible with chronic granulomatous disease. MEDIASTINUM: Calcified lymph nodes. CARDIAC: No enlargement, pericardial thickening, or pericardial effusion. AORTA: No aneurysm or dissection. CHEST WALL: No mass or axillary adenopathy BONES: No bone lesion or fracture. LIMITED ABDOMEN: Moderate-large hiatal hernia. Limited images of the upper abdomen. OTHER: Negative. CT/CT lung screening low-dose IMPRESSION: 1. Lung-RADS 2- Benign Appearance or Behavior. Nodules with a very low likelihood of becoming a clinically active cancer due to size or lack of growth. Follow-up CT Chest in 1 year. Electronically authenticated by: BURAK LAL Date: 08/16/2023 11:59 Dictated By: Burak Lal M.D. Signed By:08/16/23 1201 DD/ 1159 TD/TT: Financial Services Officer: Rosmery Leonard MD [facility] Final Result documented in this encounter Visit Diagnoses Not on filedocumented in this encounter Additional Health Concerns Assessment Noted Time PHQ-9 Depression Total Score: 0 07/12/19 24 3:00 PM EDT documented as of this encounter Care Teams Biology Research Assistant Relationship Specialty Start Date End Date Rosmery Leonard MD [address] [facility] 110 [place] [address] PCP - General Family Medicine 09/15/22 Rosmery Leonard MD [address] [facility] 110 [place] [address] PCP - ACO Reach 09/15/22MondayKimberly LPN [address] [place] [address] Licensed Practical Nurse Family Medicine 12/07/23 Pari Burk, MOLLY [address] [place] [address] Licensed Practical Nurse Family Medicine 05/31/2407/12 Elva Viera LPN 112 [facility] 110 [place] [address] 07/12/24 documented as of this encounter
--- OUTSIDE RECORDS SUMMARY | 2024-11-06 12:42 | XMS_ITS | Encounter Summary ---
Author Organization [facility] Address [address] [place] [address] Care Team Providers Care Circular Knife Machine Cutter Name Role Phone Rosmery Dodd MD Primary Care Provider [phone] Rosmery Dodd MD Unavailable Monday, Kimberly GREASE WORKER Unavailable [phone] Pari Burk RN Unavailable Viera, Elva GREASE WORKER Unavailable Encounter Details Date Type Department Care Team (Late st Contact Info) Description 02/26/2024 Abstract [facility] 112 [facility] 110 [place] [address] Rosmery Dodd MD 112 [facility] 110 [place], [place] [address] Social History Tobacco Use Types Packs/Day Years [...] documented as of this encounter Care Teams Circular Knife Machine Cutter Relationship Specialty Start Date End Date Rosmery Dodd MD [address] [place] [address] PCP - General Family Medicine 09/15/22 Rosmery Dodd MD [address] [place] [address] PCP - ACO Reach 09/15/22MondayKimberly LPN [address] [place] [address] Licensed Practical Nurse Family Medicine 12/07/23 Pari Burk, RN [address] [place] [address] Licensed Practical Nurse Family Medicine 05/31/2407/12 Elva Viera LPN [address] [place] [address] 07/12/24 documented as of this encounter
--- OUTSIDE RECORDS SUMMARY | 2024-11-06 12:42 | XMS_ITS | Encounter Summary ---
Author Organization [facility] Address [address] [place] [address] Care Team Providers Care Net Programmer Analyst Name Role Phone Rosmery Dodd MD Primary Care Provider [phone] Rosmery Dodd MD Unavailable Monday, Kimberly SUPPLY CHAIN SYSTEMS MANAGER Unavailable [phone] Pari Burk RN Unavailable Viera, Elva SUPPLY CHAIN SYSTEMS MANAGER Unavailable Encounter Details Date Type Department Care Team (Late st Contact Info) Description 01/29/2024 Abstract [facility] 112 [facility] 110 [place] [address] Rosmery Dodd MD 112 [facility] 110 [place], [place] [address] Social History Tobacco Use Types Packs/Day Years [...] documented as of this encounter Care Teams Net Programmer Analyst Relationship Specialty Start Date End Date Rosmery Dodd MD [address] [place] [address] PCP - General Family Medicine 09/15/22 Rosmery Dodd MD [address] [place] [address] PCP - ACO Reach 09/15/22MondayKimberly LPN [address] [place] [address] Licensed Practical Nurse Family Medicine 12/07/23 Pari Burk, RN [address] [place] [address] Licensed Practical Nurse Family Medicine 05/31/2407/12 Elva Viera LPN [address] [place] [address] 07/12/24 documented as of this encounter
--- OUTSIDE RECORDS SUMMARY | 2024-11-06 12:42 | XMS_ITS | Encounter Summary ---
Author Organization [facility] Address [address] [place] [address] Care Team Providers Care Electrical Linesworker Name Role Phone Rosmery Dodd MD Primary Care Provider [phone] Rosmery Dodd MD Unavailable Monday, Kimberly PRE PRESS MANAGER Unavailable [phone] Pari Burk RN Unavailable Viera, Elva PRE PRESS MANAGER Unavailable Encounter Details Date Type Department Care Team (Late st Contact Info) Description 11/21/2023 Abstract [facility] [address] [facility] 110 [place] [address] Rosmery Dodd MD 112 [facility] 110 [place], [place] [address] Social History Tobacco Use Types Packs/Day Years [...] documented as of this encounter Care Teams Electrical Linesworker Relationship Specialty Start Date End Date Rosmery Dodd MD [address] [place] [address] PCP - General Family Medicine 09/15/22 Rosmery Dodd MD [address] [place] [address] PCP - ACO Reach 09/15/22MondayKimberly LPN [address] [place] [address] Licensed Practical Nurse Family Medicine 12/07/23 Pari Burk, RN [address] [place] [address] Licensed Practical Nurse Family Medicine 05/31/2407/12 Elva Viera LPN [address] [place] [address] 07/12/24 documented as of this encounter
--- OUTSIDE RECORDS SUMMARY | 2024-11-06 12:42 | XMS_ITS | Encounter Summary ---
Author Organization [facility] Address [address] [place] [address] Care Team Providers Care Fondant Machine Operator Name Role Phone Rosmery Dodd MD Primary Care Provider [phone] Rosmery Dodd MD Unavailable Monday, Kimberly WILDLIFE CONTROL AGENT Unavailable [phone] Pari Burk RN Unavailable [phone] Viera, Elva WILDLIFE CONTROL AGENT Unavailable Encounter Details Date Type Department Care Team (Late st Contact Info) Description 11/22/2023 Abstract [facility] 112 [facility] 110 [place] [address] Rosmery Dodd MD 112 [facility] 110 [place], [place] [address] Social History Tobacco Use Types Packs/Day Years [...] documented as of this encounter Care Teams Fondant Machine Operator Relationship Specialty Start Date End Date Rosmery Dodd MD [address] [place] [address] PCP - General Family Medicine 09/15/22 Rosmery Dodd MD [address] [place] [address] PCP - ACO Reach 09/15/22MondayKimberly LPN [address] [place] [address] Licensed Practical Nurse Family Medicine 12/07/23 Pari Burk, RN [address] [place] [address] Licensed Practical Nurse Family Medicine 05/31/2407/12 Elva Viera LPN [address] [place] [address] 07/12/24 documented as of this encounter
--- OUTSIDE RECORDS SUMMARY | 2024-11-06 12:42 | XMS_ITS | Encounter Summary ---
Author Organization [facility] Address [address] [place] [address] Care Team Providers Care Pediatric Geneticist Name Role Phone Rosmery Dodd MD Primary Care Provider [phone] Rosmery Dodd MD Unavailable Monday, Kimberly HOUSE CARPENTER Unavailable [phone] Pari Burk RN Unavailable Viera, Elva HOUSE CARPENTER Unavailable Encounter Details Date Type Department Care Team (Late st Contact Info) Description 11/06/2023 Abstract [facility] 112 [facility] 110 [place] [address] Rosmery Dodd MD 112 [facility] 110 [place], [place] [address] Social History Tobacco Use Types Packs/Day Years [...] documented as of this encounter Care Teams Pediatric Geneticist Relationship Specialty Start Date End Date Rosmery Dodd MD [address] [place] [address] PCP - General Family Medicine 09/15/22 Rosmery Dodd MD [address] [place] [address] PCP - ACO Reach 09/15/22MondayKimberly LPN [address] [place] [address] Licensed Practical Nurse Family Medicine 12/07/23 Pari Burk, RN [address] [place] [address] Licensed Practical Nurse Family Medicine 05/31/2407/12 Elva Viera LPN [address] [place] [address] 07/12/24 documented as of this encounter
--- OUTSIDE RECORDS SUMMARY | 2024-11-06 12:42 | XMS_ITS | Encounter Summary ---
Author Organization [facility] Address [address] [place] [address] Care Team Providers Care Honing Machine Set Up Operator Name Role Phone Rosmery Dodd MD Primary Care Provider [phone] Rosmery Dodd MD Unavailable Monday, Kimberly NUCLEAR CRITICALITY SAFETY ENGINEER Unavailable [phone] Pari Burk RN Unavailable [phone] Viera, Elva NUCLEAR CRITICALITY SAFETY ENGINEER Unavailable Encounter Details Date Type Department Care Team (Late st Contact Info) Description 10/30/2023 Abstract [facility] 112 [facility] 110 [place] [address] Rosmery Dodd MD 112 [place] [facility] 110 [place], [place] [address] Social History Tobacco Use Types Packs/Day Years [...] documented as of this encounter Care Teams Honing Machine Set Up Operator Relationship Specialty Start Date End Date Rosmery Dodd MD [address] [place] [address] PCP - General Family Medicine 09/15/22 Rosmery Dodd MD [address] [place] [address] PCP - ACO Reach 09/15/22MondayKimberly LPN [address] [place] [address] Licensed Practical Nurse Family Medicine 12/07/23 Pari Burk, RN [address] [place] [address] Licensed Practical Nurse Family Medicine 05/31/2407/12 Elva Viera LPN [address] [place] [address] 07/12/24 documented as of this encounter
--- OUTSIDE RECORDS SUMMARY | 2024-11-06 12:42 | XMS_ITS | Encounter Summary ---
Author Organization [facility] Address [address] [place] [address] Care Team Providers Care Director Health Name Role Phone Rosmery Dodd MD Primary Care Provider [phone] Rosmery Dodd MD Unavailable Monday, Kimberly ELECTRICIAN STATION ASSISTANT Unavailable [phone] Pari Burk RN Unavailable [phone] Viera, Elva ELECTRICIAN STATION ASSISTANT Unavailable Encounter Details Date Type Department Care Team (Late st Contact Info) Description 01/04/2024 Abstract [facility] 112 [facility] 110 [place] [address] Rosmery Dodd MD [address] [facility] 110 [place], [place] [address] Social History Tobacco Use Types Packs/Day Years [...] documented as of this encounter Care Teams Director Health Relationship Specialty Start Date End Date Rosmery Dodd MD [address] [place] [address] PCP - General Family Medicine 09/15/22 Rosmery Dodd MD [address] [place] [address] PCP - ACO Reach 09/15/22MondayKimberly LPN [address] [place] [address] Licensed Practical Nurse Family Medicine 12/07/23 Pari Burk, RN [address] [place] [address] Licensed Practical Nurse Family Medicine 05/31/2407/12 Elva Viera LPN [address] [place] [address] 07/12/24 documented as of this encounter
--- OUTSIDE RECORDS SUMMARY | 2024-11-06 12:42 | XMS_ITS | Encounter Summary ---
Author Organization [facility] Address [address] [place] [address] Care Team Providers Care Compressor Stations Superintendent Name Role Phone Rosmery Dodd MD Primary Care Provider [phone] Rosmery Dodd MD Unavailable Monday, Kimberly LOADER SEMICONDUCTOR DIES Unavailable [phone] Pari Burk RN Unavailable [phone] Viera, Elva LOADER SEMICONDUCTOR DIES Unavailable Encounter Details Date Type Department Care Team (Late st Contact Info) Description 10/09/2023 Abstract [facility] 112 [facility] 110 [place] [phone] Rosmery Dodd MD [address] [place] [facility] 110 [place], [place] [address] Social History Tobacco Use Types Packs/Day Years [...] documented as of this encounter Care Teams Compressor Stations Superintendent Relationship Specialty Start Date End Date Rosmery Dodd MD [address] [place] [address] PCP - General Family Medicine 09/15/22 Rosmery Dodd MD [address] [place] [address] PCP - ACO Reach 09/15/22MondayKimberly LPN [address] [place] [address] Licensed Practical Nurse Family Medicine 12/07/23 Pari Burk, RN [address] [place] [address] Licensed Practical Nurse Family Medicine 05/31/2407/12 Elva Viera LPN [address] [place] [address] 07/12/24 documented as of this encounter
--- OUTSIDE RECORDS SUMMARY | 2024-11-06 12:42 | XMS_ITS | Encounter Summary ---
Author Organization [facility] Address [address] [place] [address] Care Team Providers Care Night Worker Name Role Phone Rosmery Dodd MD Primary Care Provider [phone] Rosmery Dodd MD Unavailable Monday, Kimberly RVDA MASTER CERTIFIED RV TECHNICIAN Unavailable [phone] Pari Burk RN Unavailable Viera, Elva RVDA MASTER CERTIFIED RV TECHNICIAN Unavailable Encounter Details Date Type Department Care Team (Late st Contact Info) Description 02/08/2024 Abstract [facility] 112 [facility] 110 [place] [address] Rosmery Dodd MD 112 [facility] 110 [place], [place] [address] Social History Tobacco Use Types Packs/Day Years [...] documented as of this encounter Care Teams Night Worker Relationship Specialty Start Date End Date Rosmery Dodd MD [address] [place] [address] PCP - General Family Medicine 09/15/22 Rosmery Dodd MD [address] [place] [address] PCP - ACO Reach 09/15/22MondayKimberly LPN [address] [place] [address] Licensed Practical Nurse Family Medicine 12/07/23 Pari Burk, RN [address] [place] [address] Licensed Practical Nurse Family Medicine 05/31/2407/12 Elva Viera LPN [address] [place] [address] 07/12/24 documented as of this encounter
--- OUTSIDE RECORDS SUMMARY | 2024-11-06 12:42 | XMS_ITS | Encounter Summary ---
Author Organization [facility] Address [address] [place] [address] Care Team Providers Care Index Clerk Name Role Phone Rosmery Dodd MD Primary Care Provider [phone] Rosmery Dodd MD Unavailable Monday, Kimberly TAX SERVICES SPECIALIST Unavailable Pari Burk RN Unavailable [phone] Viera, Elva TAX SERVICES SPECIALIST Unavailable Encounter Details Date Type Department Care Team (Late st Contact Info) Description 12/07/2023 Abstract [facility] 112 [facility] 110 [place] [phone] Rosmery Dodd MD [address] [facility] 110 [place], [place] [address] Social History Tobacco Use Types Packs/Day Years [...] documented as of this encounter Care Teams Index Clerk Relationship Specialty Start Date End Date Rosmery Dodd MD [address] [place] [address] PCP - General Family Medicine 09/15/22 Rosmery Dodd MD [address] [place] [address] PCP - ACO Reach 09/15/22MondayKimberly LPN [address] [place] [address] Licensed Practical Nurse Family Medicine 12/07/23 Pari Burk, RN [address] [place] [address] Licensed Practical Nurse Family Medicine 05/31/2407/12 Elva Viera LPN [address] [place] [address] 07/12/24 documented as of this encounter
--- OUTSIDE RECORDS SUMMARY | 2024-11-06 12:42 | XMS_ITS | Encounter Summary ---
Author Organization [facility] Address [address] [place] [address] Care Team Providers Care Manager Occupational Name Role Phone Rosmery Dodd MD Primary Care Provider [phone] Rosmery Dodd MD Unavailable Monday, Kimberly BUSINESS UNIT DIRECTOR Unavailable [phone] Pari Burk RN Unavailable Viera, Elva BUSINESS UNIT DIRECTOR Unavailable Encounter Details Date Type Department Care Team (Late st Contact Info) Description 02/19/2024 Abstract [facility] 112 [facility] 110 [place] [address] Rosmery Dodd MD 112 [facility] 110 [place], [place] [address] Social History Tobacco Use Types Packs/Day Years [...] as of this encounter Care Teams Manager Occupational Relationship Specialty Start Date End Date Rosmery Dodd MD [address] [place] [address] PCP - General Family Medicine 09/15/22 Rosmery Dodd MD [address] [place] [address] PCP - ACO Reach 09/15/22MondayKimberly LPN [address] [place] [address] Licensed Practical Nurse Family Medicine 12/07/23 Pari Burk, RN [address] [place] [address] Licensed Practical Nurse Family Medicine 05/31/2407/12 Elva Viera LPN [address] [place] [address] 07/12/24 documented as of this encounter
--- OUTSIDE RECORDS SUMMARY | 2024-11-06 12:42 | XMS_ITS | Encounter Summary ---
Author Organization [facility] Address [address] [place] [address] Care Team Providers Care Cardiovascular Sonographer Name Role Phone Rosmery Dodd MD Primary Care Provider [phone] Rosmery Dodd MD Unavailable Monday, iKmberly TIRE AND TUBE REPAIRER Unavailable [phone] Pari Burk RN Unavailable Viera, Elva TIRE AND TUBE REPAIRER Unavailable Encounter Details Date Type Department Care Team (Late st Contact Info) Description 01/01/2024 Abstract [facility] 112 [facility] 110 [place] [address] Rosmery Dodd MD 112 [place] [facility] 110 [place], [place] [address] Social History Tobacco Use Types Packs/Day Years [...] documented as of this encounter Care Teams Cardiovascular Sonographer Relationship Specialty Start Date End Date Rosmery Dodd MD [address] [place] [address] PCP - General Family Medicine 09/15/22 Rosmery Dodd MD [address] [place] [address] PCP - ACO Reach 09/15/22MondayKimberly LPN [address] [place] [address] Licensed Practical Nurse Family Medicine 12/07/23 Pari Burk, RN [address] [place] [address] Licensed Practical Nurse Family Medicine 05/31/2407/12 Elva Viera LPN [address] [place] [address] 07/12/24 documented as of this encounter
--- OUTSIDE RECORDS SUMMARY | 2024-11-06 12:42 | XMS_ITS ---
Author Organization [facility] Address [address] [place] [address] Care Team Providers Care Full Fashioned Garment Knitter Name Role Phone Rosmery Dodd MD Primary Care Provider [phone] Rosmery Dodd MD Unavailable Elva Viera LPN Unavailable Chronic Care Management (CCM) Status:Enrolled (Active) Start date:12/07/2023 Enrollment date:12/13/2023 Enrollment reason:Identified as high-risk Overview Please assess for Care Management needs.12/13/23, 8:46 AM - Kimberly Monday, SKINNY- Patient gives verbalconsent to be enrolled in CCM Program and understands there could be a bill for this service if herinsurance should change. Case Team Name Relationship Phone Elva Viera LPN(Responsible Staff) [phone] Continued Care and Services Coordination
--- OUTSIDE RECORDS SUMMARY | 2024-11-06 12:42 | XMS_ITS | Clinical Summary ---
Author Organization [facility] Address [address] [place] [address] Phone Care Team Providers Care Driver Supervisor Name Role Phone Rosmery Dodd MD Primary Care Provider [phone] Social History Tobacco Use Types Packs/Day Years Used Date Smoking Tobacco: Never Assessed Comments Unknown Sex and Gender Information Value Date Recorded Sex Assigned at Not on file Legal Sex Female 7:48 AM EST Gender Identity Not on file Sexual Orientation Not on file Last Filed Vital Signs Vital Sign Reading Time Taken Comments Blood Pressure 114/76 02/02/2021 2:13 PM EDT Pulse 66 02/02/2021 2:13 PM EDT Temperature - - Respiratory Rate - - Oxygen Saturation - - Inhaled Oxygen Concentration - - Weight 82.1 kg (181 lb) 02/02/2021 2:13 PM EDT Height 151.1 cm (4' 11.5 ) 02/02/2021 2:13 PM ED T Body Mass Index 35.95 02/02/2021 2:13 PM EDT Plan of Treatment Not on file Care Teams Driver Supervisor Relationship Specialty Start Date End Date Rosmery Dodd MD [address] [place] [address] PCP - General 06/22/20
--- OUTSIDE RECORDS SUMMARY | 2024-11-06 12:42 | XMS_ITS | Encounter Summary ---
Author Organization [facility] Address [address] [place] [address] Care Team Providers Care Pointer Machine Operator Name Role Phone Rosmery Dodd MD Primary Care Provider [phone] Rosmery Dodd MD Unavailable Monday, Kimberly SOFTWARE ENGINEERING ANALYST Unavailable [phone] Pari Burk RN Unavailable [phone] Viera, Elva SOFTWARE ENGINEERING ANALYST Unavailable Encounter Details Date Type Department Care Team (Late st Contact Info) Description 02/09/2024 Abstract [facility] 112 [facility] 110 [place] [address] Rosmery Dodd MD 112 [facility] 110 [place], [place] [address] Social History Tobacco Use Types Packs/Day Years [...] documented as of this encounter Care Teams Pointer Machine Operator Relationship Specialty Start Date End Date Rosmery Dodd MD [address] [place] [address] PCP - General Family Medicine 09/15/22 Rosmery Dodd MD [address] [place] [address] PCP - ACO Reach 09/15/22MondayKimberly LPN [address] [place] [address] Licensed Practical Nurse Family Medicine 12/07/23 Pari Burk, RN [address] [place] [address] Licensed Practical Nurse Family Medicine 05/31/2407/12 Elva Viera LPN [address] [place] [address] 07/12/24 documented as of this encounter
--- OUTSIDE RECORDS SUMMARY | 2024-11-06 12:42 | XMS_ITS | Encounter Summary ---
Author Organization [facility] Address [address] [facility] [place] [address] Care Team Providers Care Filler Mixer Name Role Phone Rosmery Dodd MD Primary Care Provider [phone] Rosmery Dodd MD Unavailable Monday, Kimberly MOTION STUDY TECHNICIAN Unavailable [phone] Pari Burk RN Unavailable Viera, Elva MOTION STUDY TECHNICIAN Unavailable Encounter Details Date Type Department Care Team (Late st Contact Info) Description 09/08/2022 Abstract [facility] [address] [facility] [address] [place] [address] Rachel Meehan MD [facility] 350 [place] [address] Social History Tobacco Use Types Packs/Day Years Used Date Smoking Tobacco: Former Cigarettes Q uit: 07/23/2021 Tobacco Cessation:Counseling Given: Not Answered Alcohol Use Standard Drinks/Week Comments Yes 0 (1 standard drink = 0.6 oz pure alcohol) Alcohol: 2-4 times a month. Caffeine Intake: none Education Answer Date Recorded What is the [...] on filedocumented in this encounter Care Teams Filler Mixer Relationship Specialty Start Date End Date Rosmery Dodd MD [address] [place] [address] PCP - General Family Medicine 09/15/22 Rosmery Dodd MD [address] [place] [address] PCP - ACO Reach 09/15/22Monday, SKINNY Harris [address] [place] [address] Licensed Practical Nurse Family Medicine 12/07/23 Pari Burk, RN [address] [place] [address] Licensed Practical Nurse Family Medicine 05/31/2407/12 Evla Viera LPN [address] [facility] 110 [place] [address] 07/12/24 documented as of this encounter
--- OUTSIDE RECORDS SUMMARY | 2024-11-06 12:42 | XMS_ITS | Encounter Summary ---
Author Organization [facility] Address [address] [place] [address] Care Team Providers Care Stove Installer Name Role Phone Rosmery Dodd MD Primary Care Provider [phone] Rosmery Dodd MD Unavailable Monday, Kimberly CIGAR BANDER Unavailable [phone] Pari Burk RN Unavailable Viera, Elva CIGAR BANDER Unavailable Encounter Details Date Type Department Care Team (Late st Contact Info) Description 02/20/2023 Abstract [facility] 112 [facility] 110 [place] [address] Rosmery Dodd MD [address] [place] [facility] 110 [place], [place] [address] Social History Tobacco Use Types Packs/Day Years [...] on filedocumented in this encounter Care Teams Stove Installer Relationship Specialty Start Date End Date Rosmery Dodd MD [address] [place] [address] PCP - General Family Medicine 09/15/22 Rosmery Dodd MD [address] [place] [address] PCP - ACO Reach 09/15/22Monday, SKINNY [place] [address] [place] [address] Licensed Practical Nurse Family Medicine 12/07/23 Pari Burk RN [address] [place] [address] Licensed Practical Nurse Family Medicine 05/31/2407/12 Elva Viera LPN [address] [facility] 110 [place] [address] 07/12/24 documented as of this encounter
--- OUTSIDE RECORDS SUMMARY | 2024-11-06 12:42 | XMS_ITS | Encounter Summary ---
Author Organization [facility] Address [address] [place] [address] Care Team Providers Care Wood Coater Name Role Phone Rosmery Dodd MD Primary Care Provider [phone] Rosmery Dodd MD Unavailable Monday, Kimberly CAMPUS MANAGER Unavailable [phone] Pari Burk RN Unavailable Viera, Elva CAMPUS MANAGER Unavailable Encounter Details Date Type Department Care Team (Late st Contact Info) Description 02/16/2024 Abstract [facility] 112 [facility] 110 [place] [address] Rosmery Dodd MD 112 [facility] 110 [place], [place] [address] Social History Tobacco Use Types Packs/Day Years [...] documented as of this encounter Care Teams Wood Coater Relationship Specialty Start Date End Date Rosmery Dodd MD [address] [place] [address] PCP - General Family Medicine 09/15/22 Rosmery Dodd MD [address] [place] [address] PCP - ACO Reach 09/15/22MondayKimberly LPN [address] [place] [address] Licensed Practical Nurse Family Medicine 12/07/23 Pari Burk, RN [address] [place] [address] Licensed Practical Nurse Family Medicine 05/31/2407/12 Elva Viera LPN [address] [place] [address] 07/12/24 documented as of this encounter
--- OUTSIDE RECORDS SUMMARY | 2024-11-06 12:42 | XMS_ITS | Encounter Summary ---
Author Organization [facility] Address [address] [place] [address] Care Team Providers Care Wheat And Oats Flake Miller Name Role Phone Rosmery Dodd MD Primary Care Provider [phone] Rosmery Dodd MD Unavailable Monday, Kimberly TRADES HELPER Unavailable [phone] Pari Burk RN Unavailable Viera, Elva TRADES HELPER Unavailable Encounter Details Date Type Department Care Team (Late st Contact Info) Description 11/20/2023 Abstract [facility] 112 [facility] 110 [place] [address] Rosmery Dodd MD 112 [facility] 110 [place], [place] [address] Social History Tobacco Use Types Packs/Day Years [...] documented as of this encounter Care Teams Wheat And Oats Flake Miller Relationship Specialty Start Date End Date Rosmery Dodd MD [address] [place] [address] PCP - General Family Medicine 09/15/22 Rosmery Dodd MD [address] [place] [address] PCP - ACO Reach 09/15/22MondayKimberly LPN [address] [place] [address] Licensed Practical Nurse Family Medicine 12/07/23 Pari Burk, RN [address] [place] [address] Licensed Practical Nurse Family Medicine 05/31/2407/12 Elva Viera LPN [address] [place] [address] 07/12/24 documented as of this encounter
--- OUTSIDE RECORDS SUMMARY | 2024-11-06 12:42 | XMS_ITS | Encounter Summary ---
Author Organization [facility] Address [address] [place] [address] Care Team Providers Care Website Programmer Name Role Phone Rosmery Dodd MD Primary Care Provider [phone] Rosmery Dodd MD Unavailable Monday, Kimberly RATOPRINTER Unavailable [phone] Pari Burk RN Unavailable Viera, Elva RATOPRINTER Unavailable Encounter Details Date Type Department Care Team (Late st Contact Info) Description 02/19/2024 Abstract [facility] 112 [facility] 110 [place] [phone] Rosmery Dodd MD 112 [facility] 110 [place], [place] [address] Social History Tobacco Use Types Packs/Day Years [...] documented as of this encounter Care Teams Website Programmer Relationship Specialty Start Date End Date Rosmery Dodd MD [address] [place] [address] PCP - General Family Medicine 09/15/22 Rosmery Dodd MD [address] [place] [address] PCP - ACO Reach 09/15/22MondayKimberly LPN [address] [place] [address] Licensed Practical Nurse Family Medicine 12/07/23 Pari Burk, RN [address] [place] [address] Licensed Practical Nurse Family Medicine 05/31/2407/12 Elva Viera LPN [address] [place] [address] 07/12/24 documented as of this encounter
--- OUTSIDE RECORDS SUMMARY | 2024-11-06 12:42 | XMS_ITS | Encounter Summary ---
Author Organization [facility] Address [address] [place] [address] Care Team Providers Care Ui Developer Name Role Phone Rosmery Dodd MD Primary Care Provider [phone] Rosmery Dodd MD Unavailable Monday, Kimberly VICE PRESIDENT PAYMENT Unavailable [phone] Pari Burk RN Unavailable Viera, Elva VICE PRESIDENT PAYMENT Unavailable Encounter Details Date Type Department Care Team (Late st Contact Info) Description 11/22/2023 Abstract [facility] [address] [facility] 110 [place] [address] Rosmery Dodd MD 112 [place] [facility] 110 [place], [place] [address] Social History Tobacco Use Types Packs/Day Years [...] documented as of this encounter Care Teams Ui Developer Relationship Specialty Start Date End Date Rosmery Dodd MD [address] [place] [address] PCP - General Family Medicine 09/15/22 Rosmery Dodd MD [address] [place] [address] PCP - ACO Reach 09/15/22MondayKimberly LPN [address] [place] [address] Licensed Practical Nurse Family Medicine 12/07/23 Pari Burk, RN [address] [place] [address] Licensed Practical Nurse Family Medicine 05/31/2407/12 Elva Viera LPN [address] [place] [address] 07/12/24 documented as of this encounter
--- OUTSIDE RECORDS SUMMARY | 2024-11-06 12:42 | XMS_ITS | Encounter Summary ---
Author Organization [facility] Address [address] [place] [address] Care Team Providers Care Green Belt Name Role Phone Rosmery Dodd MD Primary Care Provider [phone] Rosmery Dodd MD Unavailable Monday, Kimberly ARTIFICIAL FLOWERS DYER Unavailable [phone] Pari Burk RN Unavailable [phone] Viera, Elva ARTIFICIAL FLOWERS DYER Unavailable Encounter Details Date Type Department Care Team (Late st Contact Info) Description 11/13/2023 Abstract [facility] 112 [facility] 110 [place] [address] Rosmery Dodd MD 112 [facility] 110 [place], [place] [address] Social History Tobacco Use Types Packs/Day Years [...] documented as of this encounter Care Teams Green Belt Relationship Specialty Start Date End Date Rosmery Dodd MD [address] [place] [address] PCP - General Family Medicine 09/15/22 Rosmery Dodd MD [address] [place] [address] PCP - ACO Reach 09/15/22MondayKimberly LPN [address] [place] [address] Licensed Practical Nurse Family Medicine 12/07/23 Pari Burk, RN [address] [place] [address] Licensed Practical Nurse Family Medicine 05/31/2407/12 Elva Viera LPN [address] [place] [address] 07/12/24 documented as of this encounter
--- OUTSIDE RECORDS SUMMARY | 2024-11-06 12:42 | XMS_ITS | Encounter Summary ---
Author Organization [facility] Address [address] [place] [address] Care Team Providers Care Nutrition Partner Name Role Phone Rosmery Dodd MD Primary Care Provider [phone] Rosmery Dodd MD Unavailable Monday, Kimberly OCCUPATIONAL HEALTH MANAGER Unavailable [phone] Pari Burk RN Unavailable [phone] Viera, Elva OCCUPATIONAL HEALTH MANAGER Unavailable Encounter Details Date Type Department Care Team (Late st Contact Info) Description 11/30/2023 Abstract [facility] 112 [facility] 110 [place] [address] Rosmery Dodd MD [address] [place] [facility] 110 [place], [place] [address] Social History Tobacco Use Types Packs/Day Years [...] documented as of this encounter Care Teams Nutrition Partner Relationship Specialty Start Date End Date Rosmery Dodd MD [address] [place] [address] PCP - General Family Medicine 09/15/22 Rosmery Dodd MD [address] [place] [address] PCP - ACO Reach 09/15/22MondayKimberly LPN [address] [place] [address] Licensed Practical Nurse Family Medicine 12/07/23 Pari Burk, RN [address] [place] [address] Licensed Practical Nurse Family Medicine 05/31/2407/12 Elva Viera LPN [address] [place] [address] 07/12/24 documented as of this encounter
--- OUTSIDE RECORDS SUMMARY | 2024-11-06 12:42 | XMS_ITS | Encounter Summary ---
Author Organization [facility] Address [address] [place] [address] Care Team Providers Care Chemist Helper Name Role Phone Rosmery Leonard MD Primary Care Provider [phone] Rosmery Leonard MD Unavailable Monday, Kimberly CELLO TEACHER Unavailable [phone] Pari Burk RN Unavailable Viera, Elva CELLO TEACHER Unavailable Encounter Details Date Type Department Care Team (Late st Contact Info) Description 08/17/2023 Clinisync Result Encounter [facility] External Department Unsolicited Rosmery Leonard MD [address] [address] Social History Tobacco Use Types [...] Procedure Name Priority Date/Time Associated Diagnosis Comments MM TOMOSYNTHESIS SCREENING BI 08/17/2023 12:17 PM EDT documented in this encounter Results * MM TOMOSYNTHESIS SCREENING BI (08/17/2023 12:17 PM EDT) Anatomical Region Laterality Modality Other 08/17/2023 12:1 7 PM EDT Narrative 08/17/2023 12:18 [place] [address] Mammography Report Signed Patient: SONALI POLO MR#: [id number] : 1950 Acct:[id number] Age/Sex: 73 / F ADM Date: 08/16/23 Loc: MAMMO Attending Dr: ROSMERY LEONARD Ordering Physician: ROSMERY LEONARD Results: Date of Service: 08/16/23 Follow Up: Procedure(s): MM tomosynthesis screening BI Accession Number(s): [id number] cc: ROSMERY LENOARD Patient Name: SONALI POLO MR#: [id number] : 1950 Exam Date: 08/16/2023 Ordering Doctor: DR ROSMERY LEONARD M.D. RADIOLOGY REPORT PROCEDURE: MM TOMOSYNTHESIS SCREENING BI COMPARISON: MG MAMM SCREEN 3D KECIA CAD, 06/29/2022. MG MAMM SCREEN 3D KECIA CAD, 02/26/2021. MG MAMM SCREEN KECIA W CAD, 12/12/2019. MG MAMM KECIA SCRN W CAD DIG, 04/08/2014. INDICATIONS: Screening Calculator Name NCI Breast Cancer Risk Assessment Tool 5 Year Breast Cancer Risk 2.00% Lifetime Breast Cancer Risk 4.80% Personal Breast Cancer No Personal Ovarian Cancer No Treatments None Family Cancers Father with stomach cancer at age 68; Mother with lymphoma cancer at age 83; Sister with throat cancer at age 55. LOCATION: [facility] BREAST COMPOSITION: The breasts are almost entirely fatty. FINDINGS: DIAGNOSTIC CATEGORY 1--NEGATIVE. RIGHT BREAST: No significant suspicious finding. No significant change has occurred. LEFT BREAST: No significant suspicious finding. No significant change has occurred. RECOMMENDATIONS: ROUTINE MAMMOGRAM AND CLINICAL EVALUATION IN 12 MONTHS. PLEASE NOTE: A NORMAL MAMMOGRAM DOES NOT EXCLUDE THE POSSIBILITY OF BREAST CANCER. A CLINICALLY SUSPICIOUS PALPABLE LUMP SHOULD BE BIOPSIED. Dictated by: Antony Lal M.D. on 08/17/2023 at 12:11 Approved by: Antony Lal M.D. on 08/17/2023 at 12:17 Dictated By: Antony Lal M.D. Signed By: 08/17/23 1218 DD/ 1217 TD/TT: Historian Research Assistant: Procedure Note Radiology, Radiologist, MD - 08/17/2023 [place] [address] Mammography Report Signed Patient: SONALI POLO LMR#: [id number] : 1950cct:[id number] Age/Sex: 73 / FADM Date: 08/16/23 Loc: MAMMO Attending Dr: ROSMERY LEONARD Ordering Physician: ROSMERY LEONARDResults: Date of Service: 08/16/23Follow Up: Procedure(s): MM tomosynthesis screening BI Accession Number(s): [id number] cc: ROSMERY LEONARD Patient Name: SONALI POLO MR#: [id number] : 1950 Exam Date: 08/16/2023 Ordering Doctor: DR ROSMERY LEONARD M.D. RADIOLOGY REPORT PROCEDURE: MM TOMOSYNTHESIS SCREENING BI COMPARISON: MG MAMM SCREEN 3D KECIA CAD, 06/29/2022. MG MAMM SCREEN 3DBIL CAD, 02/26/2021. MG MAMM SCREEN KECIA W CAD, 12/12/2019. MG MAMM KECIA SCRN WCAD DIG, 04/08/2014. INDICATIONS: Screening Calculator Name NCI Breast Cancer Risk Assessment Tool 5 Year Breast Cancer Risk 2.00% Lifetime Breast Cancer Risk 4.80% Personal Breast Cancer No Personal Ovarian Cancer No Treatments None Family Cancers Father with stomach cancer at age 68; Mother withlymphoma cancer at age 83; Sister with throat cancer at age 55. LOCATION: [facility] BREAST COMPOSITION: The breasts are almost entirely fatty. FINDINGS: DIAGNOSTIC CATEGORY 1--NEGATIVE. RIGHT BREAST: No significant suspicious finding. No significant changehas occurred. LEFT BREAST: No significant suspicious finding. No significant changehas occurred. RECOMMENDATIONS: ROUTINE MAMMOGRAM AND CLINICAL EVALUATION IN 12 MONTHS. PLEASE NOTE: A NORMAL MAMMOGRAM DOES NOT EXCLUDE THE POSSIBILITY OFBREAST CANCER. A CLINICALLY SUSPICIOUS PALPABLE LUMP SHOULD BE BIOPSIED. Dictated by: Antony Lal M.D. on 08/17/2023 at 12:11 Approved by: Antony Lal M.D. on 08/17/2023 at 12:17 Dictated By: Antony Lal M.D. Signed By:08/17/23 1218 DD/ 1217 TD/TT: Historian Research Assistant: Rosmery Leonard MD [facility] Final Result documented in this encounter Visit Diagnoses Not on filedocumented in this encounter Additional Health Concerns Assessment Noted Time PHQ-9 Depression Total Score: 0 07/12/19 24 3:00 PM EDT documented as of this encounter Care Teams Chemist Helper Relationship Specialty Start Date End Date Rosmery Leonard MD [address] [place] [address] PCP - General Family Medicine 09/15/22 Rosmery Leonard MD [address] [place] [address] PCP - ACO Reach 09/15/22Monday, SKINNY Harris [address] [place] [address] Licensed Practical Nurse Family Medicine 12/07/23 Pari Burk, MOLLY [address] [place] [address] Licensed Practical Nurse Family Medicine 05/31/2407/12 Elva Viera LPN [address] [place] [address] 07/12/24 documented as of this encounter
--- OUTSIDE RECORDS SUMMARY | 2024-11-06 12:42 | XMS_ITS | Encounter Summary ---
Author Organization [facility] Address [address] [place] [address] Care Team Providers Care Flatbed Stitcher Name Role Phone Rosmery Dodd MD Primary Care Provider [phone] Rosmery Dodd MD Unavailable Monday, Kimberly PLATEN PRESS OPERATOR Unavailable [phone] Pari Burk RN Unavailable Viera, Elva PLATEN PRESS OPERATOR Unavailable Encounter Details Date Type Department Care Team (Late st Contact Info) Description 11/22/2023 Abstract [facility] [address] [facility] 110 [place] [phone] Rosmery Dodd MD 112 [place] [facility] 110 [place], [place] [address] Social History Tobacco Use Types Packs/Day Years [...] documented as of this encounter Care Teams Flatbed Stitcher Relationship Specialty Start Date End Date Rosmery Dodd MD [address] [place] [address] PCP - General Family Medicine 09/15/22 Rosmery Dodd MD [address] [place] [address] PCP - ACO Reach 09/15/22MondayKimberly LPN [address] [place] [address] Licensed Practical Nurse Family Medicine 12/07/23 Pari Burk, RN [address] [place] [address] Licensed Practical Nurse Family Medicine 05/31/2407/12 Elva Viera LPN [address] [place] [address] 07/12/24 documented as of this encounter
--- OUTSIDE RECORDS SUMMARY | 2024-11-06 12:42 | XMS_ITS | Encounter Summary ---
Author Organization [facility] Address [address] [place] [address] Care Team Providers Care Sales Ambassador Name Role Phone Rosmery Dodd MD Primary Care Provider [phone] Rosmery Dodd MD Unavailable Monday, Kimberly C PROGRAMMER Unavailable [phone] Pari Burk RN Unavailable [phone] Viera, Elva C PROGRAMMER Unavailable Encounter Details Date Type Department Care Team (Late st Contact Info) Description 11/23/2023 Abstract [facility] 112 [facility] 110 [place] [phone] Rosmery Dodd MD 112 [place] [facility] 110 [place], [place] [id number] Social History Tobacco Use Types Packs/Day Years [...] documented as of this encounter Care Teams Sales Ambassador Relationship Specialty Start Date End Date Rosmery Dodd MD [address] [place] [address] PCP - General Family Medicine 09/15/22 Rosmery Dodd MD [address] [place] [address] PCP - ACO Reach 09/15/22MondayKimberly LPN [address] [place] [address] Licensed Practical Nurse Family Medicine 12/07/23 Pari Burk, RN [address] [place] [address] Licensed Practical Nurse Family Medicine 05/31/2407/12 Elva Viera LPN [address] [place] [address] 07/12/24 documented as of this encounter
--- OUTSIDE RECORDS SUMMARY | 2024-11-06 12:42 | XMS_ITS | Encounter Summary ---
Author Organization [facility] Address [address] [place] [address] Care Team Providers Care Grapple Skidder Operator Name Role Phone Rosmery Dodd MD Primary Care Provider [phone] Rosmery Dodd MD Unavailable Monday, Kimberly TEMPERATURE LOGGING OPERATOR Unavailable [phone] Pari Burk RN Unavailable Elva Viera TEMPERATURE LOGGING OPERATOR Unavailable Encounter Details Date Type Department Care Team (Late st Contact Info) Description 12/22/2023 Orders Only [facility] [address] [place] [phone] Meme Sauceda LPN [address] [place] [address] Encounter for screening mammogram for malignant neoplasm of breast; Former smoker Social History Tobacco Use Types Packs/Day Years [...] documented as of this encounter Visit Diagnoses Diagnosis Encounter for screening mammogram for malignant neoplasm of breast Former smoker Personal history of tobacco use, presenting hazards to health documented in this encounter Additional Health Concerns Assessment Noted Time PHQ-9 Depression Total Score: 0 07/12/19 24 3:00 PM EDT documented as of this encounter Care Teams Grapple Skidder Operator Relationship Specialty Start Date End Date Rosmery Dodd MD [address] [place] [address] PCP - General Family Medicine 09/15/22 Rosmery Dodd MD [address] [facility] 110 [place] [address] PCP - ACO Reach 09/15/22MondayKimberly LPN [address] [place] [address] Licensed Practical Nurse Family Medicine 12/07/23 Pari Burk RN [address] [facility] [place] [address] Licensed Practical Nurse Family Medicine 05/31/2407/12 Elva Viera LPN [address] [facility] 110 [place] [address] 07/12/24 documented as of this encounter
--- OUTSIDE RECORDS SUMMARY | 2024-11-06 12:42 | XMS_ITS | Encounter Summary ---
Author Organization [facility] Address [address] [place] [address] Care Team Providers Care Surface Lay Out Technician Name Role Phone Rosmery Dodd MD Primary Care Provider [phone] Rosmery Dodd MD Unavailable Monday, Kimberly COFFEE SOMMELIER Unavailable [phone] Pari Burk RN Unavailable Viera, Elva COFFEE SOMMELIER Unavailable Encounter Details Date Type Department Care Team (Late st Contact Info) Description 08/29/2023 Abstract [facility] 112 [facility] 110 [place] [phone] Rosmery Dodd MD 112 [place] [facility] 110 [place], [place] [phone] Social History Tobacco Use Types Packs/Day Years [...] documented as of this encounter Care Teams Surface Lay Out Technician Relationship Specialty Start Date End Date Rosmery Dodd MD [address] [place] [address] PCP - General Family Medicine 09/15/22 Rosmery Dodd MD [address] [place] [address] PCP - ACO Reach 09/15/22MondayKimberly LPN [address] [place] [address] Licensed Practical Nurse Family Medicine 12/07/23 Pari Burk, RN [address] [place] [address] Licensed Practical Nurse Family Medicine 05/31/2407/12 Elva Viera LPN [address] [place] [address] 07/12/24 documented as of this encounter
--- OUTSIDE RECORDS SUMMARY | 2024-11-06 12:42 | XMS_ITS | Encounter Summary ---
Author Organization [facility] Address [address] [place] [address] Care Team Providers Care Head Machinist Name Role Phone Rosmery Dodd MD Primary Care Provider [phone] Rosmery Dodd MD Unavailable Monday, Kimberly MOONER Unavailable [phone] Pari Burk RN Unavailable Viera, Elva MOONER Unavailable Encounter Details Date Type Department Care Team (Late st Contact Info) Description 11/27/2023 Abstract [facility] 112 [facility] 110 [place] [phone] Rosmery Dodd MD 112 [place] [facility] 110 [place], [place] [address] Social History Tobacco Use Types Packs/Day Years [...] documented as of this encounter Care Teams Head Machinist Relationship Specialty Start Date End Date Rosmery Dodd MD [address] [place] [address] PCP - General Family Medicine 09/15/22 Rosmery Dodd MD [address] [place] [address] PCP - ACO Reach 09/15/22MondayKimberly LPN [address] [place] [address] Licensed Practical Nurse Family Medicine 12/07/23 Pari Burk, RN [address] [place] [address] Licensed Practical Nurse Family Medicine 05/31/2407/12 Elva Viera LPN [address] [place] [address] 07/12/24 documented as of this encounter
--- OUTSIDE RECORDS SUMMARY | 2024-11-06 12:42 | XMS_ITS | Encounter Summary ---
Author Organization [facility] Address [address] [place] [address] Care Team Providers Care Net Application Architect Name Role Phone Rosmery Dodd MD Primary Care Provider [phone] Rosmery Dodd MD Unavailable Monday, Kimberly IN CLASS SPECIAL EDUCATION TEACHER Unavailable [phone] Pari Burk RN Unavailable [phone] Viera, Elva IN CLASS SPECIAL EDUCATION TEACHER Unavailable Encounter Details Date Type Department Care Team (Late st Contact Info) Description 03/28/2024 Abstract [facility] 112 [facility] 110 [place] [phone] Rosmery Dodd MD 112 [facility] 110 [place], [place] [address] Social History Tobacco Use Types Packs/Day Years [...] as of this encounter Care Teams Net Application Architect Relationship Specialty Start Date End Date Rosmery Dodd MD [address] [place] [address] PCP - General Family Medicine 09/15/22 Rosmery Dodd MD [address] [place] [address] PCP - ACO Reach 09/15/22MondayKimberly LPN [address] [place] [address] Licensed Practical Nurse Family Medicine 12/07/23 Pari Burk, RN [address] [place] [address] Licensed Practical Nurse Family Medicine 05/31/2407/12 Elva Viera LPN [address] [place] [address] 07/12/24 documented as of this encounter
--- OUTSIDE RECORDS SUMMARY | 2024-11-06 12:42 | XMS_ITS | Encounter Summary ---
Author Organization [facility] Address [address] [place] [address] Care Team Providers Care Well Logging Captain Name Role Phone Rosmery Dodd MD Primary Care Provider [phone] Rosmery Dodd MD Unavailable Monday, Kimberly RAILROAD CAR CLEANING SUPERVISOR Unavailable [phone] aPri Burk RN Unavailable Viera, Elva RAILROAD CAR CLEANING SUPERVISOR Unavailable Encounter Details Date Type Department Care Team (Late st Contact Info) Description 02/21/2023 Abstract [facility] 112 [facility] 110 [place] [address] Rosmery Dodd MD 112 [place] [facility] 110 [place], [place] [address] Social History Tobacco Use Types Packs/Day Years [...] on filedocumented in this encounter Care Teams Well Logging Captain Relationship Specialty Start Date End Date Rosmery Dodd MD [address] [place] [address] PCP - General Family Medicine 09/15/22 Rosmery Dodd MD [address] [place] [address] PCP - ACO Reach 09/15/22Monday, SKINNY Harris [address] [place] [address] Licensed Practical Nurse Family Medicine 12/07/23 Pari Burk RN [address] [place] [address] Licensed Practical Nurse Family Medicine 05/31/2407/12 Elva Viera LPN [address] [facility] 110 [place] [address] 07/12/24 documented as of this encounter
--- OUTSIDE RECORDS SUMMARY | 2024-11-06 12:42 | XMS_ITS | Encounter Summary ---
Author Organization [facility] Address [address] [place] [address] Care Team Providers Care Bandoleer Straightener Stamper Name Role Phone Rosmery Dodd MD Primary Care Provider [phone] Rosmery Dodd MD Unavailable Monday, Kimberly AIRCRAFT CABIN CLEANER Unavailable [phone] Pari Burk RN Unavailable Viera, Elva AIRCRAFT CABIN CLEANER Unavailable Encounter Details Date Type Department Care Team (Late st Contact Info) Description 03/14/2024 Abstract [facility] 112 [facility] 110 [place] [phone] Rosmery Dodd MD 112 [facility] 110 [place], [place] [address] Social History Tobacco Use Types Packs/Day Years [...] documented as of this encounter Care Teams Bandoleer Straightener Stamper Relationship Specialty Start Date End Date Rosmery Dodd MD [address] [place] [address] PCP - General Family Medicine 09/15/22 Rosmery Dodd MD [address] [place] [address] PCP - ACO Reach 09/15/22MondayKimberly LPN [address] [place] [address] Licensed Practical Nurse Family Medicine 12/07/23 Pari Burk, RN [address] [place] [address] Licensed Practical Nurse Family Medicine 05/31/[address]07/12 Elva Viera LPN [address] [place] [address] 07/12/24 documented as of this encounter
--- OUTSIDE RECORDS SUMMARY | 2024-11-06 12:43 | XMS_ITS | Encounter Summary ---
Author Organization [facility] Address [address] [id number] Care Team Providers Care Check Scaler Name Role Phone Unavailable Primary Care Provider Unavailabl e Source Comments In the event this information is protected by the Federal Confidentiality of Alcohol and Drug AbusePatient Records regulations: The Federal rules restrict any use of the information to criminally investigate or prosecute any alcohol or drug abuse patient.[facility] Encounter Details Date Type Department Care Team (Late st Contact Info) Description 04/19/2021 Patient Msg Spine [place] [address] [place] [address] Georges Urias MD [address] [facility] [address] [place] [address] Appointment Request Social History Tobacco Use Types Packs/Day Years Used Date Smoking Tobacco: Every Day Smokeless Tobacco: Never Alcohol Use Standard Drinks/Week Comments Yes 0 (1 standard drink = 0.6 oz pur e alcohol) Comments Unknown Sex and Gender Information Value Date Recorded Sex Assigned at Female 05/20/2021 8:31 AM EST Legal Sex Female 12:38 PM EDT Gender Identity Female 05/20/2021 8:31 AM EST Sexual Orientation Straight 05/20/2021 8: 32 AM EST documented as of this encounter Plan of Treatment Not on file documented as of this encounter Visit Diagnoses Not on filedocumented in this encounter
--- OUTSIDE RECORDS SUMMARY | 2024-11-06 12:43 | XMS_ITS | Encounter Summary ---
Author Organization [facility] Address [address] [id number] Care Team Providers Care Library Consultant Name Role Phone Unavailable Primary Care Provider Unavailabl e Source Comments In the event this information is protected by the Federal Confidentiality of Alcohol and Drug AbusePatient Records regulations: The Federal rules restrict any use of the information to criminally investigate or prosecute any alcohol or drug abuse patient.[facility] Encounter Details Date Type Department Care Team (Late st Contact Info) Description 04/19/2021 Patient Msg Spine [place] [address] [place] [address] Georges Urias MD [address]00 [facility] [address] [place] [address] Appointment Request Social History Tobacco [...]
--- OUTSIDE RECORDS SUMMARY | 2024-11-06 12:43 | XMS_ITS | Encounter Summary ---
Author Organization [facility] Address [address] [place] [address] Care Team Providers Care Welder Name Role Phone Rosmery Dodd MD Primary Care Provider [phone] Rosmery Dodd MD Unavailable Elva Viera LPN Unavailable Encounter Details Date Type Department Care Team (Late st Contact Info) Description 09/23/2024 Abstract [facility] [address] [facility] 110 [place] [address] Rosmery Dodd MD 112 [facility] 110 [place], [place] [address] Social History Tobacco Use Types Packs/Day Years [...] Date Recorded Patient Health Questionnaire-2 Score 0 09/23/2024 Hunger Vital Sign Answer Date Recorded Within [...] on file documented as of this encounter Functional Status * Over the past 2 weeks, how often have you been bothered by any of the following problems? Question Answer Date of Assessment Author Little interest or pleasure in doing things Not at all 09/23/2024 1:00 PM EDT Meme Sauceda LP N Feeling down, depressed, or hopeless Not at all 09/23/2024 1:00 PM EDT Meme Sauceda LP N Patient Health Questionnaire -2 Score 0 09/23/2024 1:00 PM EDT Meme Sauceda LP N * Question Answer Date of Assessment Author Trouble falling or staying asleep, or sleeping too much Not at all 09/23/2024 1:00 PM EDT She Sauceda LPN Feeling tired or having thai le energy Not at all 09/23/2024 1:00 PM EDT Meme Sauceda LP N Poor appetite or overeating Not at all 09/23/2024 1: 00 PM EDT Meme Sauceda LPN Feeling bad about yourself - or that you are a failure or have let yourself or your family down Not at all 09/23/2024 1:00 PM EDT Meme Sauceda LPN Trouble concentrating on thi ngs, such as reading the newspaper or watching television Not at all 09/23/2024 1:00 PM EDT Meme Sauceda LP N Moving or speaking so slowly that other people could have noticed? Or the opposite - being so fidgety or restless that you have been moving around a lot more than usual. Not at all 09/23/2024 1:00 PM EDT Meme Sauceda LP N Thoughts that you would be better off or hurting yourself in some way Not at all 09/23/2024 1:00 PM EDT Meme Sauceda L PN Patient Health Questionnaire -9 Score 0 09/23/2024 1:00 PM EDT Meme Sauceda LP N documented as of this encounter Plan of Treatment Not on file documented as of this encounter Visit Diagnoses Not on filedocumented in this encounter Additional Health Concerns Assessment Noted Time PHQ-9 Depression Total Score: 0 09/24/19 1:00 PM EDT documented as of this encounter Care Teams Welder Relationship Specialty Start Date End Date Rosmery Dodd MD [address] [facility] 110 [place] [address] PCP - General Family Medicine 09/15/22 Rosmery Dodd MD [address] [facility] 110 [place] [address] PCP - ACO Reach 09/15/22 Elva Viera LPN [address] [facility] 110 [place] [address] 07/12/24 documented as of this encounter
--- OUTSIDE RECORDS SUMMARY | 2024-11-06 12:43 | XMS_ITS | Encounter Summary ---
Author Organization [facility] Address [address] [place] [address] Care Team Providers Care Java Application Developer Name Role Phone Rosmery Dodd MD Primary Care Provider [phone] Rosmery Dodd MD Unavailable Elva Viera LPN Unavailable Encounter Details Date Type Department Care Team (Late st Contact Info) Description 09/23/2024 Abstract [facility] 112 [facility] 110 [place] [address] Rosmery Dodd MD 112 [facility] 110 [place], [place] [address] Social History Tobacco Use Types Packs/Day Years [...] documented as of this encounter Care Teams Java Application Developer Relationship Specialty Start Date End Date Rosmery Dodd MD [address] [facility] 110 [place] [address] PCP - General Family Medicine 09/15/22 Rosmery Dodd MD [address] [facility] 110 [place] [address] PCP - ACO Reach 09/15/22 Elva Viera LPN [address] [facility] 110 [place] [address] 07/12/24 documented as of this encounter
--- OUTSIDE RECORDS SUMMARY | 2024-11-06 12:43 | XMS_ITS | Encounter Summary ---
Author Organization [facility] Address [address] [place] [address] Care Team Providers Care Casino Floor Walker Name Role Phone Rosmery Dodd MD Primary Care Provider [phone] Rosmery Dodd MD Unavailable Elva Viera LPN Unavailable Encounter Details Date Type Department Care Team (Late st Contact Info) Description 10/15/2024 Abstract [facility] 112 [facility] 110 [place] [address] Rosmery Dodd MD 112 [facility] 110 [place], [place] [id number] Social History Tobacco Use Types Packs/Day Years [...] documented as of this encounter Care Teams Casino Floor Walker Relationship Specialty Start Date End Date Rosmery Dodd MD [address] [place] [address] [address] PCP - General Family Medicine 09/15/22 Rosmery Dodd MD [address] [place] [facility] 110 [place] [address] PCP - ACO Reach 09/15/22 Elva Viera LPN [address] [place] [address] [address] 07/12/24 documented as of this encounter
--- OUTSIDE RECORDS SUMMARY | 2024-11-06 12:43 | XMS_ITS | Encounter Summary ---
Author Organization [facility] Address [address] [id number] Care Team Providers Care Supervisor Sign Shop Name Role Phone Unavailable Primary Care Provider Unavailabl e Source Comments In the event this information is protected by the Federal Confidentiality of Alcohol and Drug AbusePatient Records regulations: The Federal rules restrict any use of the information to criminally investigate or prosecute any alcohol or drug abuse patient.[facility] Encounter Details Date Type Department Care Team (Late st Contact Info) Description 04/19/2021 Patient Msg [facility] [place] 9300 [place] [address] Georges Urias MD [address] [facility] [address] [place] [address] Appointment Request Social History Tobacco [...]
--- OUTSIDE RECORDS SUMMARY | 2024-11-06 12:43 | XMS_ITS | Encounter Summary ---
Author Organization [facility] Address [address] [place] [address] Care Team Providers Care Creative Director Name Role Phone Rosmery Dodd MD Primary Care Provider [phone] Rosmery Dodd MD Unavailable Elva Viera LPN Unavailable Encounter Details Date Type Department Care Team (Late st Contact Info) Description 09/26/2024 Abstract [facility] 112 [facility] 110 [place] [address] Rosmery Dodd MD 112 [facility] 110 [place], [place] [address] Social History Tobacco Use Types Packs/Day Years [...] documented as of this encounter Care Teams Creative Director Relationship Specialty Start Date End Date Rosmery Dodd MD [address] [place] [address] [address] PCP - General Family Medicine 09/15/22 Rosmery Dodd MD [address] [place] [facility] 110 [place] [address] PCP - ACO Reach 09/15/22 Elva Viera LPN [address] [place] [address] [address] 07/12/24 documented as of this encounter
--- OUTSIDE RECORDS SUMMARY | 2024-11-06 12:43 | XMS_ITS | Encounter Summary ---
Author Organization [facility] Address [address] [place] [address] Care Team Providers Care Licensed Therapist Name Role Phone Rosmery Dodd MD Primary Care Provider [phone] Rosmery Dodd MD Unavailable Elva Viera LPN Unavailable Encounter Details Date Type Department Care Team (Late st Contact Info) Description 09/10/2024 Abstract [facility] 112 [facility] 110 [place] [address] Rosmery Dodd MD 112 [facility] 110 [place], [place] [id number] Social History Tobacco Use Types Packs/Day Years [...] documented as of this encounter Care Teams Licensed Therapist Relationship Specialty Start Date End Date Rosmery Dodd MD [address] [address] [address] PCP - General Family Medicine 09/15/22 Rosmery Dodd MD [address] [facility] 110 [place] [address] PCP - ACO Reach 09/15/22 Elva Viera LPN [address] [address] 07/12/24 documented as of this encounter
--- OUTSIDE RECORDS SUMMARY | 2024-11-06 12:43 | XMS_ITS | Clinical Summary ---
Author Organization [facility] Address [address] [place] [address] Care Team Providers Care Sulfonator Operator Name Role Phone Rosmery eLonard MD Primary Care Provider [phone] Rosmery Leonard MD Unavailable Elva Viera LPN Unavailable Allergies Active Allergy Reactions Criticality Noted Date Comments Amoxicillin Unknown 09/01/2022 Penicillins Hives 10/21/2020 Other Reaction(s): Rash Medications Ascorbic Acid (vitamin C) 250 MG tablet Take 500 mg by mouth Daily Active cholecalciferol (Vitamin D3) 25 MCG (1000 UT) tablet Take by mouth Daily 02/22/2024 Active Oyster Shell Calcium 500 MG tablet Take 1 tablet by mouth in the morning and 1 tablet before bedtime. 02/22/2024 Active diclofenac (Voltaren) 75 MG EC tabletIndication s:Myalgia TAKE 1 TABLET BY MOUTH TWICE A DAY FOR 90 DAYS 180 tablet 3 04/22/2024 Active Multiple Vitamin (multivitamin) capsule Take 1 capsule by mouth Daily Active co-enzyme Q-10 30 MG capsule Take 30 mg by mouth Daily Active gabapentin (Neurontin) 300 MG capsuleIndicatio ns:Myalgia TAKE 1 CAPSULE BY MOUTH 3 TIMES A DAY 270 capsule 3 08/05/2024 Active traMADol (Ultram) 50 MG tablet Take 50 mg by mouth 2 (two) times a day as needed 09/10/2024 Active omeprazole (PriLOSEC) [address] capsuleIndicatio ns:Gastroesophag eal reflux disease without esophagitis TAKE 1 CAPSULE BY MOUTH 30 MINUTES BEFORE MORNING MEAL ONCE A DAY 100 capsule 3 10/02/2024 Active Active Problems Problem Noted Date Diagnosed Date Bilateral knee pain 04/15/2024 Impaired mobility and activities of daily living 04/15/2024 Infection of total left knee replacement 024 Osteopenia 04/15/2024 Assessment & Plan (04/15/2024 1:13 PM EST): Reminded the patient how Prolia works in the body to help with bone density. Also reminded pt of potential s/e of the medication including osteonecrosis of jaw and atypical hip fractures. Reviewed importance of routine dental care. Advised pt of the need to continue with the treatment to avoid vertebral fractures from discontinuing the medication. Encouraged adequate calcium and vitamin D intake. Patient voiced understanding. Prolia given. Pt tolerated the injection well. Follow up in 6 months for next injection, or sooner should she have any concerns. S/P revision of total knee 04/15/2024 Inflammation of left sacroiliac joint 10/03/2023 Other chronic pain 10/03/2023 Primary osteoarthritis of both knees 10/03/2023 Former smoker 07/12/2023 Osteoarthritis 03/28/2023 Age-related osteoporosis wit hout current pathological fracture 02/04/2023 Assessment & Plan (10/03/2023 11:45 AM EDT): Reminded the patient how Prolia works in the body to help with bone density. Also reminded pt of potential s/e of the medication including osteonecrosis of jaw and atypical hip fractures. Reviewed importance of routine dental care. Advised pt of the need to continue with the treatment to avoid vertebral fractures from discontinuing the medication. Encouraged adequate calcium and vitamin D intake. Patient voiced understanding. Prolia given. Pt tolerated the injection well. Follow up in 6 months for next injection, or sooner should she have any concerns. No Future Jaw surgeries No current side effects Assessment & Plan (04/03/2023 10:44 AM EST): Reminded the patient how Prolia works in the body to help with bone density. Also reminded pt of potential s/e of the medication including osteonecrosis of jaw and atypical hip fractures. Reviewed importance of routine dental care. Advised pt of the need to continue with the treatment to avoid vertebral fractures from discontinuing the medication. Encouraged adequate calcium and vitamin D intake. Patient voiced understanding. Prolia given. Pt tolerated the injection well. Follow up in 6 months for next injection, or sooner should she have any concerns. Diverticulosis of large intestine without hemorr reese 02/04/2023 Elevated LDL cholesterol level 02/04/2023 Insomnia 02/04/2023 Left kidney mass 02/04/2023 Major depressive disorder, single episode, moder ate 02/04/2023 Solitary pulmonary nodule 02/04/2023 Spondylolisthesis of lumbar region 02/04/2023 Stage 3a chronic kidney disease 02/04/2023 Myalgia 02/01/2023 Lumbosacral plexus lesion 09/22/2018 Lumbar stenosis without neurogenic claudication 05/04/2018 Degeneration of lumbar intervertebral disc 05/04 Constipation 11/30/2017 Primary ovarian failure 09/07/2017 Gastroesophageal reflux disease without esophagi tis 03/23/2016 Resolved Problems Problem Noted Date Diagnosed Date Resolved Date Infection of total knee replacement 04/15/2024 05/20/2024 Assessment & Plan (04/15/2024 1:29 PM EST): On [employer]yv[employer] Sees Dr. Miller and Dr. Bhatia Heartburn 03/28/2023 07/12/2023 Smoker 03/28/2023 07/12/2023 Myopathy 02/23/2023 07/12/2023 Encounter for pre-operative examination 02/20/2023 07/12/2023 Assessment & Plan (02/20/2023 10:41 AM EDT): No Current Chest Pain Patient is having a low Cardiac risk surgery She is cleared for Left Total Knee Replacement. No NSAIDs 7-10 days prior to surgery No aspirin 7 days before surgery Tylenol is OK Obesity (BMI 30-39.9) 02/04/20232023 Other intervertebral disc de generation, lumbar region 02/04/2023 07/12/2023 Pure hypercholesterolemia 12/18/2018 Tobacco dependence 10/16/2018 Acquired spondylolisthesis 05/04/2018 0 07/12/2023 Age related osteoporosis 11/16/2017 Obesity 09/07/2017 09/23/2024 Diverticular disease of colon 05/25/2017 07/12/2023 Cholelithiasis without obstruction 05/24/2017 07/12/2023 Backache 08/21/2014 07/12/2023 Encounters Date Type Department Care Team Description 10/23/2024 Abstract [facility] 112 [facility] 110 [place] [address] Rosmery Leonard MD 10/18/2024 Abstract [facility] 112 [facility] 110 [place] [address] Rosmery Leonard MD 10/15/2024 Abstract [facility] 112 [facility] 110 [place] [address] Rosmery Leonard MD 10/08/2024 Telephone [facility] 112 [facility] 110 [place] [address] Rosmery Leonard MD 10/08/2024 Patient Outreach [facility] [address] [place] [address] Pari Burk RN 10/02/2024 Abstract [facility] 112 [facility] 110 [place] [address] Rosmery Leonard MD 10/02/2024 Refill [facility] 112 [facility] 110 [place] [address] Maile Claudio PA Gastroesophageal reflux disease without esophagitis 09/26/2024 Abstract [facility] 112 [facility] 110 [place] [address] Rosmery Leonard MD 09/25/2024 Telephone [facility] [address] [facility] 110 [place] [address] Rosmery Leonard MD prolia 09/23/2024 1:30 PM EDT Office Visit [facility] 112 [facility] 110 [place] [address] Maile Claudio PA Medicare annual wellness visit, subsequent (Primary Dx); ACP (advance care planning); Encounter for screening mammogram for malignant neoplasm of breast; Estrogen deficiency; Former smoker; Myalgia; Age-related osteoporosis without current pathological fracture ; Chronic idiopathic constipation; Diverticulosis of large intestine without hemorrhage; Elevated LDL cholesterol level ; Gastroesophageal reflux disease without esophagitis; Primary insomnia; Left kidney mass; Lumbar stenosis without neurogenic claudication; Major depressive disorder, single episode, moderate (HCC); Degeneration of intervertebral disc of lumbar region with discogenic back pain; Primary ovarian failure; Solitary pulmonary nodule; Spondylolisthesis of lumbar region; Stage 3a chronic kidney disease (CMS-HCC); Lumbosacral plexus lesion; Primary osteoarthritis involving multiple joints; Inflammation of left sacroiliac joint; Other chronic pain; Primary osteoarthritis of both knees; Chronic pain of both knees; Impaired mobility and activities of daily living; Infection of total left knee replacement, sequela; Osteopenia, unspecified location; Status post revision of total replacement of left knee; Class 2 severe obesity due to excess calories with serious comorbidity and body mass index (BMI) of 38.0 to 38.9 in adult ([facility]); Other fatigue 09/23/2024 Abstract [facility] 112 [facility] 110 [place] [address] Rosmery Leonard MD 09/23/2024 Abstract [facility] [address] [facility] [address] [place] [address] Rosmery Leonard MD 09/23/2024 Bamboo flowsheet [facility] [address] [facility] [address] [place] [address] Maile Claudio PA 09/23/2024 Travel 09/19/2024 Telephone [facility] 112 [facility] [address] [place] [address] Rosmery Leonard MD 09/12/2024 Abstract [facility] [address] [facility] [address] [place] [address] Rosmery Leonard MD 09/10/2024 Abstract [facility] 112 [facility] [address] [place] [address] Rosmery Leonard MD 09/10/2024 Abstract [facility] 112 [facility] [address] [place] [address] Rosmery Leonard MD 09/04/2024 Abstract [facility] 112 [facility] [address] [place] [address] Rosmery Leonard MD 08/30/2024 Abstract [facility] 112 [facility] [address] [place] [address] Rosmery Leonard MD 08/19/2024 Patient Outreach [facility] [address] [place] [address] Elva Viera LPN from Last 3 Months Immunizations Immunization Administration Dates Next Due Influenza, High Dose Seasona l, Preservative Free 01/25/2022,12/24/2019,03/09/2017 Influenza, High-dose Seasona l, Quadrivalent, Preservative Free 02/20/2023,01/25/2022,03/24/2016 Influenza, Seasonal, Quadriv alent, Adjuvanted 02/27/2021,02/21/2020 Influenza, Unspecified 03/09/2017,03/24/2016 Influenza, seasonal, injectable 02/05/2020 Influenza, trivalent, adjuvanted 03/01/2019,01/23 Pneumococcal Conjugate PCV 13 03/09/2017, 016 Pneumococcal Polysaccharide PPSV23 03/12/2018 Family History Medical History Relation Name Comments Cancer Father Stomach Cancer Cancer Mother BBC, Hodgkin's Lymphoma Diabetes Mother Melanoma Neg Hx Relation Name Status Comments Father Mother Social History Tobacco Use Types Packs/Day Years [...] PM EDT Sexual Orientation Not on file Last Filed Vital Signs Vital Sign Reading Time Taken Comments Blood Pressure 98/58 09/23/2024 1:54 PM EDT Pulse 88 09/23/2024 1:54 PM EDT Temperature 37.3 C (99.2 F) 05/20/2024 2:54 PM EST Respiratory Rate 16 09/23/2024 1:54 PM EDT Oxygen Saturation 96% 09/23/2024 1:54 PM EDT Inhaled Oxygen Concentration - - Weight 84 kg (185 lb 3.2 oz) 09/23/2024 1:54 PM EDT Height 147.3 cm (4' 10 ) 09/23/2024 1:54 PM EDT Body Mass Index 38.71 09/23/2024 1:54 PM EDT Plan of Treatment Health Maintenance Due Date Last Done Comments CT Colonography 1950 FIT-DNA 1950 FIT 1950 FOBT 1950 Sigmoidoscopy 1950 Mammogram 08/16/2024 08/17/2023, 03/0 11/2022, 02/26/2021, Additional history exists Influenza Vaccine (#1) 2024 3, 01/25/2022, 01/25/2022, Additional history exists Medicare Annual Wellness (AWV) 09/23/2025 0 09/23/2024, 07/12/2023, 06/21/2022 Colonoscopy 06/03/2030 06/03/2020, 05/09/2016 Colorectal Cancer Screening 06/03/2030 Pneumococcal Vaccine: 65+ Years Completed 03/12/2018, 03/09/2017, 03/24/2016 Procedures Procedure Name Priority Date/Time Associated Diagnosis Comments VITAMIN D 1,25 DIHYDROXY Routine 09/25/2024 9:43 AM EDT Medicare annual wellness visit, subsequent Vitamin D deficiency LIPID PANEL Routine 09/25/2024 9:43 AM EDT Medicare annual wellness visit, subsequent Screening for lipid disorders COMPREHENSIVE METABOLIC PANEL Routine 09/25/2024 9:43 AM EDT Abnormal glucose tolerance test Benign essential hypertension Pure hypercholesterolem ia, unspecified Medicare annual wellness visit, subsequent Vitamin D deficiency CBC (INCLUDES DIFF/PLT) Routine 09/25/2024 9:43 AM EDT Benign essential hypertension Pure hypercholesterolem ia, unspecified Medicare annual wellness visit, subsequent Vitamin D deficiency MM TOMOSYNTHESIS SCREENING BI 08/17/2023 12:17 PM EDT COLONOSCOPY Routine 06/03/2020 12:00 PM EST from Last 3 Months or Most Recently Relevant to Health Maintenance Results * Vitamin D 1,25 dihydroxy (09/25/2024 9:43 AM EDT) VITAMIN D, 1,25 (OH)2, TOTAL 32 18 - 72 pg/mL [facility] VITAMIN D3, 1,25 (OH)2 32 pg/mL [facility] VITAMIN D2, 1,25 (OH)2 <8 pg/mL [facility] Comment: Vitamin D3, 1,25(OH)2 indicates both endogenous production and supplementation. Vitamin D2, 1,25(OH)2 is an indicator of exogenous sources, such as diet or supplementation. Interpretation and therapy are based on measurement of Vitamin D,1,25(OH)2, Total. This test was developed and its analytical performance characteristics have been determined by [facility] [place], [place]. It has not been cleared or approved by the FDA. This assay has been validated pursuant to the CLIA regulations and is used for clinical purposes. Blood Venous blood specimen / Unknown 09/25/2024 9:43 AM EDT 09/25/2024 9:43 AM EDT Narrative [facility] - 09/29/2024 5:17 PM EDT FASTING:YES FASTING: YES Resulting Agency Comment Performing Organization Information Site ID: AMD Name: [employer] [facility] Address: [address] [place] [address] [place] Director: Laz Carnes M.D.,PhD us Rosmery Leonard MD LAB BLOOD ORDERABLES Final Resul t [facility] * (ABNORMAL) CBC and differential (09/25/2024 9:43 AM EDT) WHITE BLOOD CELL COUNT 6.2 3.8 - 10.8 Thousand/u L [facility] RED BLOOD CELL COUNT 4.32 3.80 - 5.10 Million/uL [facility] HEMOGLOBIN 13.2 11.7 - 15.5 g/dL [facility] HEMATOCRIT 41.8 35.0 - 45.0 % [facility] MCV 96.8 80.0 - 100.0 fL [facility] MCH 30.6 27.0 - 33.0 pg [facility] MCHC 31.6(L) 32.0 - 36.0 g/dL [facility] Comment: For adults, a slight decrease in the calculated MCHC value (in the range of 30 to 32 g/dL) is most likely not clinically significant; however, it should be interpreted with caution in correlation with other red cell parameters and the patient's clinical condition. RDW 14.1 11.0 - 15.0 % [facility] PLATELET COUNT 304 140 - 400 Thousand/u L [facility] MPV 9.1 7.5 - 12.5 fL [facility] ABSOLUTE NEUTROPHILS 3,875 1,500 - 7,800 cells/uL [facility] ABSOLUTE LYMPHOCYTES 1,494 850 - 3,900 cells/uL [facility] ABSOLUTE MONOCYTES 502 200 - 950 cells/uL [facility] ABSOLUTE EOSINOPHILS 260 15 - 500 cells/uL [facility] ABSOLUTE BASOPHILS 68 0 - 200 cells/uL [facility] NEUTROPHILS 62.5 % [facility] LYMPHOCYTES 24.1 % [facility] MONOCYTES 8.1 % [facility] EOSINOPHILS 4.2 % [facility] BASOPHILS 1.1 % [facility] Blood Venous blood specimen / Unknown 09/25/2024 9:43 AM EDT 09/25/2024 9:43 AM EDT Narrative [facility] - 09/29/2024 5:17 PM EDT FASTING:YES FASTING: YES Resulting Agency Comment Performing Organization Information Site ID: QPT Name: [facility] Address: [address] [place] [address], [address] [place] [id number] Director: Mart Evans MD us Rosmery Leonard MD LAB BLOOD ORDERABLES Final Resul t [facility] * Lipid panel (09/25/2024 9:43 AM EDT) [facility] Signature CHOLESTEROL, TOTAL 164 <200 mg/dL [facility] HDL CHOLESTEROL 63 > OR = 50 mg/dL [facility] TRIGLYCERIDES 68 <150 mg/dL [facility] LDL CHOLESTEROL 86 mg/dL (calc) [facility] Comment: Reference range: <100 Desirable range <100 mg/dL for primary prevention; <70 mg/dL for patients with CHD or diabetic patients with > or = 2 CHD risk factors. LDL-C is now calculated using the Meek-Stanford calculation, which is a validated novel method providing better accuracy than the Friedewald equation in the estimation of LDL-C. Meek HOWARD et al. JONN. 2013;310(19): 9080-8941 (http://education.[employer].Boond/faq/SLK613) CHOL/HDLC RATIO 2.6 <5.0 (calc) [facility] NON HDL CHOLESTEROL 101 <130 mg/dL (calc) [facility] Comment: For patients with diabetes plus 1 major ASCVD risk factor, treating to a non-HDL-C goal of <100 mg/dL (LDL-C of <70 mg/dL) is considered a therapeutic option. Blood Venous blood specimen / Unknown 09/25/2024 9:43 AM EDT 09/25/2024 9:43 AM EDT Narrative [facility] - 09/29/2024 5:17 PM EDT FASTING:YES FASTING: YES Resulting Agency Comment Performing Organization Information Site ID: QPT Name: [facility] Address: [address] , [address] [place] [address] Director: Mart Evans MD us Rosmery Leonard MD LAB BLOOD ORDERABLES Final Resul t [facility] * (ABNORMAL) Comprehensive metabolic panel (09/25/2024 9:43 AM EDT) Pathologist [facility] Glucose 92 65 - 99 mg/dL [facility] Comment: Fasting reference interval BUN 45(H) 7 - 25 mg/dL [facility] Creatinine 1.01(H) 0.60 - 1.00 mg/dL [facility] EGFR 58(L) > OR = 60 mL/min/1.7 3m2 [facility] BUN/CREATININE RATIO 45(H) 6 - 22 (calc) [facility] Sodium 140 135 - 146 mmol/L [facility] Potassium, Bld 4.4 3.5 - 5.3 mmol/L [facility] Chloride 105 98 - 110 mmol/L [facility] Carbon Dioxide 25 20 - 32 mmol/L [facility] Calcium 9.6 8.6 - 10.4 mg/dL [facility] PROTEIN, TOTAL 6.6 6.1 - 8.1 g/dL [facility] ALBUMIN 4.1 3.6 - 5.1 g/dL [facility] GLOBULIN 2.5 1.9 - 3.7 g/dL (calc) [facility] ALBUMIN/GLOBULIN RATIO 1.6 1.0 - 2.5 (calc) [facility] BILIRUBIN, TOTAL 0.4 0.2 - 1.2 mg/dL [facility] ALKALINE PHOSPHATASE 72 37 - 153 U/L [facility] AST 19 10 - 35 U/L [facility] ALT 17 6 - 29 U/L [facility] Blood Venous blood specimen / Unknown 09/25/2024 9:43 AM EDT 09/25/2024 9:43 AM EDT Narrative [facility] - 09/29/2024 5:17 PM EDT FASTING:YES FASTING: YES Resulting Agency Comment Performing Organization Information Site ID: QPT Name: [facility] Address: [address] , [address] [place] [address] Director: Mart Evans MD us Rosmery Leonard MD LAB BLOOD ORDERABLES Final Resul t [facility] * MM TOMOSYNTHESIS SCREENING BI (08/17/2023 12:17 PM EDT) Anatomical Region Laterality Modality Other 08/17/2023 12:1 7 PM EDT Narrative 08/17/2023 12:18 [place] [address] Mammography Report Signed Patient: HIRA POLO MR#: [id number] : 1950 Acct:[id number] Age/Sex: 73 / F ADM Date: 08/16/23 Loc: MAMMO Attending Dr: ROSMERY LEONARD Ordering Physician: ROSMERY LEONARD Results: Date of Service: 08/16/23 Follow Up: Procedure(s): MM tomosynthesis screening BI Accession Number(s): [id number] cc: ROSMERY LEONARD Patient Name: HIRA POLO MR#: [id number] : 1950 Exam Date: 08/16/2023 Ordering Doctor: [...] throat cancer at age 55. LOCATION: [facility] BREAST COMPOSITION: The breasts are almost entirely [...] Signed By: 08/17/23 1218 DD/ 1217 TD/TT: Equipment Service Technician: Procedure Note Radiology, Radiologist, MD - 08/17/2023 [place] [address] Mammography Report Signed Patient: HIRA POLO LMR#: [id number] : 1950cct:[id number] Age/Sex: 73 / FADM Date: 08/16/23 Loc: MAMMO Attending Dr: ROSMERY LEONARD Ordering Physician: Amanda LEONARDults: Date of Service: 08/16/23Follow Up: Procedure(s): MM tomosynthesis screening BI Accession Number(s): [id number] cc: ROSMERY LEONARD Patient Name: HIRA POLO MR#: [id number] : 1950 Exam Date: 08/16/2023 Ordering Doctor: [...] throat cancer at age 55. LOCATION: [facility] BREAST COMPOSITION: The breasts are almost entirely [...] M.D. Signed By:08/17/23 1218 DD/ 1217 TD/TT: Equipment Service Technician: Rosmery Leonard MD [facility] Final Result * Colonoscopy (06/03/2020 12:00 PM EST) Anatomical Region Laterality Modality Endoscopy 06/03/2020 12:0 0 PM EST Narrative 06/03/2020 12:00 PM EST PERFORMED AT [facility] LOCATION:[id number] sigmoid polyp Procedure Note CONVERSION, GENERIC - 09/07/2022 PERFORMED AT [facility] LOCATION:[id number] sigmoid polyp Rosmery Leonard MD ENDOSCOPY PROCEDURE ORDERABLES F inal Result from Last 3 Months or Most Recently Relevant to Health Maintenance Insurance MEDICARE Care Teams Sulfonator Operator Relationship Specialty Start Date End Date Rosmery Leonard MD [address] [place] [address] PCP - General Family Medicine 09/15/22 Rosmery Leonard MD [address] [address] PCP - ACO Reach 09/15/22 Elva Viera LPN [address] [address] 07/12/24
--- OUTSIDE RECORDS SUMMARY | 2024-11-06 12:43 | XMS_ITS | Encounter Summary ---
Author Organization [facility] Address [address] [id number] Care Team Providers Care Narrow Gauge Engineer Name Role Phone Unavailable Primary Care Provider Unavailabl e Source Comments In the event this information is protected by the Federal Confidentiality of Alcohol and Drug AbusePatient Records regulations: The Federal rules restrict any use of the information to criminally investigate or prosecute any alcohol or drug abuse patient.[facility] Encounter Details Date Type Department Care Team (Late st Contact Info) Description 03/31/2021 Patient Msg Spine [place] [address] [place] [address] Georges Urias MD [address]00 [facility] [address] [place] [address] Appointment Request Social History Tobacco [...] Orientation Straight 05/20/2021 8: 32 AM EST COVID-19 Exposure Response Date Recorded In the last month, have you been in contact with someone who was confirmed or suspected to have Coronavirus / COVID-19? No / Unsure 03/03/2021 9:34 AM EST documented as of this encounter Plan of Treatment Not on file documented as of this encounter Visit Diagnoses Not on filedocumented in this encounter
--- OUTSIDE RECORDS SUMMARY | 2024-11-06 12:43 | XMS_ITS | Encounter Summary ---
Author Organization [facility] Address [address] [place] [address] Care Team Providers Care Fruit Grower Name Role Phone Rosmery Dodd MD Primary Care Provider [phone] Rosmery Dodd MD Unavailable Elva Viera LPN Unavailable Encounter Details Date Type Department Care Team (Late st Contact Info) Description 09/04/2024 Abstract [facility] 112 [facility] 110 [place] [address] Rosmery Dodd MD 112 [facility] 110 [place], [place] [phone] Social History Tobacco Use Types Packs/Day Years [...] documented as of this encounter Care Teams Fruit Grower Relationship Specialty Start Date End Date Rosmery Dodd MD [address] [place] [address] [address] PCP - General Family Medicine 09/15/22 Rosmery Dodd MD [address] [place] [facility] 110 [place] [address] PCP - ACO Reach 09/15/22 Elva Viera LPN [address] [place] [address] [address] 07/12/24 documented as of this encounter
--- OUTSIDE RECORDS SUMMARY | 2024-11-06 12:43 | XMS_ITS | Encounter Summary ---
Author Organization [facility] Address [address] [id number] Care Team Providers Care Looper Fixer Name Role Phone Unavailable Primary Care Provider Unavailabl e Source Comments In the event this information is protected by the Federal Confidentiality of Alcohol and Drug AbusePatient Records regulations: The Federal rules restrict any use of the information to criminally investigate or prosecute any alcohol or drug abuse patient.[facility] Encounter Details Date Type Department Care Team (Late st Contact Info) Description 03/31/2021 Patient Msg Spine [place] [address] [place] [address] Georges Urias MD 9500 [facility] [address] [place] [address] Appointment Request Social History Tobacco [...]
--- OUTSIDE RECORDS SUMMARY | 2024-11-06 12:43 | XMS_ITS | Encounter Summary ---
Author Organization [facility] Address [address] [place] [address] Care Team Providers Care Trailer Sections Assembler Name Role Phone Rosmery Dodd MD Primary Care Provider [phone] Rosmery Dodd MD Unavailable Elva Viera LPN Unavailable Encounter Details Date Type Department Care Team (Late st Contact Info) Description 08/30/2024 Abstract [facility] [address] [facility] 110 [place] [address] Rosmery Dodd MD 112 [facility] 110 [place], [place] [id number] Social History Tobacco Use Types Packs/Day Years [...] documented as of this encounter Care Teams Trailer Sections Assembler Relationship Specialty Start Date End Date Rosmery Dodd MD [address] [place] [address] [address] PCP - General Family Medicine 09/15/22 Rosmery Dodd MD [address] [place] [facility] 110 [place] [address] PCP - ACO Reach 09/15/22 Elva Viera LPN [address] [address] [address] 07/12/24 documented as of this encounter
--- OUTSIDE RECORDS SUMMARY | 2024-11-06 12:43 | XMS_ITS | Encounter Summary ---
Author Organization [facility] Address [address] [id number] Care Team Providers Care Forensic Artist Name Role Phone Unavailable Primary Care Provider Unavailabl e Source Comments In the event this information is protected by the Federal Confidentiality of Alcohol and Drug AbusePatient Records regulations: The Federal rules restrict any use of the information to criminally investigate or prosecute any alcohol or drug abuse patient.[facility] Encounter Details Date Type Department Care Team (Late st Contact Info) Description 04/19/2021 Patient Msg Spine [place] [address] [place] [address] Georges Urias MD 9500 [facility] [address] [place] [address] Appointment Request Social History Tobacco [...]
--- OUTSIDE RECORDS SUMMARY | 2024-11-06 12:43 | XMS_ITS | Encounter Summary ---
Author Organization [facility] Address [address] [place] [address] Care Team Providers Care Allergy Nurse Name Role Phone Rosmery Dodd MD Primary Care Provider [phone] Rosmery Dodd MD Unavailable Elva Viera LPN Unavailable Encounter Details Date Type Department Care Team (Late st Contact Info) Description 10/23/2024 Abstract [facility] 112 [facility] 110 [place] [address] Rosmery Dodd MD 112 [facility] 110 [place], [place] [id number] Social History Tobacco Use Types Packs/Day Years [...] documented as of this encounter Care Teams Allergy Nurse Relationship Specialty Start Date End Date Rosmery Dodd MD 112 [place] [address] [address] PCP - General Family Medicine 09/15/22 Rosmery Dodd MD 112 [place] [facility] 110 [place] [address] PCP - ACO Reach 09/15/22 Elva Viera LPN 112 [place] [address] [address] 07/12/24 documented as of this encounter
--- OUTSIDE RECORDS SUMMARY | 2024-11-06 12:43 | XMS_ITS | Encounter Summary ---
Author Organization [facility] Address [address] [place] [address] Care Team Providers Care Lumber Material Handler Name Role Phone Rosmery Dodd MD Primary Care Provider [phone] Rosmery Dodd MD Unavailable Elva Viera LPN Unavailable Encounter Details Date Type Department Care Team (Late st Contact Info) Description 10/18/2024 Abstract [facility] 112 [facility] 110 [place] [address] Rosmery Dodd MD 112 [facility] 110 [place], [place] [phone] Social History Tobacco Use Types Packs/Day Years [...] documented as of this encounter Care Teams Lumber Material Handler Relationship Specialty Start Date End Date Rosmery Dodd MD [address] [place] [address] [address] PCP - General Family Medicine 09/15/22 Rosmery Dodd MD 112 [place] [facility] 110 [place] [address] PCP - ACO Reach 09/15/22 Elva Viera LPN [address] [place] [address] [address] 07/12/24 documented as of this encounter
--- OUTSIDE RECORDS SUMMARY | 2024-11-06 12:43 | XMS_ITS | Encounter Summary ---
Author Organization [facility] Address [address] [place] [address] Care Team Providers Care Director Of Counterintelligence Name Role Phone Rosmery Dodd MD Primary Care Provider [phone] Rosmery Dodd MD Unavailable Elva Viera LPN Unavailable Encounter Details Date Type Department Care Team (Late st Contact Info) Description 09/10/2024 Abstract [facility] 112 [facility] 110 [place] [address] Rosmery Dodd MD 112 [facility] 110 [place], [place] [phone] Social History Tobacco Use Types Packs/Day Years [...] as of this encounter Care Teams Director Of Counterintelligence Relationship Specialty Start Date End Date Rosmery Dodd MD [address] [place] [address] [address] PCP - General Family Medicine 09/15/22 Rosmery Dodd MD 112 [place] [facility] 110 [place] [address] PCP - ACO Reach 09/15/22 Elva Viera LPN [address] [place] [address] [address] 07/12/24 documented as of this encounter
--- OUTSIDE RECORDS SUMMARY | 2024-11-06 12:43 | XMS_ITS | Encounter Summary ---
Author Organization [facility] Address [address] [place] [address] Care Team Providers Care Chipping Machine Operator Name Role Phone Rosmery Dodd MD Primary Care Provider [phone] Rosmery Dodd MD Unavailable Elva Viera LPN Unavailable Encounter Details Date Type Department Care Team (Late st Contact Info) Description 09/12/[address] [facility] [address] [facility] 110 [place] [address] Rosmery Dodd MD 112 [facility] 110 [place], [place] [address] Social History Tobacco Use Types Packs/Day Years [...] documented as of this encounter Care Teams Chipping Machine Operator Relationship Specialty Start Date End Date Rosmery Dodd MD [address] [place] [address] [address] PCP - General Family Medicine 09/15/22 Rosmery Dodd MD 112 [place] [facility] 110 [place] [address] PCP - ACO Reach 09/15/22 Elva Viera LPN [address] [place] [address] [address] 07/12/24 documented as of this encounter
--- OUTSIDE RECORDS SUMMARY | 2024-11-06 12:43 | XMS_ITS | Encounter Summary ---
Author Organization [facility] Address [address] [place] [address] Care Team Providers Care Twister Doffer Name Role Phone Rosmery Dodd MD Primary Care Provider [phone] Rosmery Dodd MD Unavailable Elva Viera LPN Unavailable Encounter Details Date Type Department Care Team (Late st Contact Info) Description 10/02/2024 Abstract [facility] 112 [facility] 110 [place] [address] Rosmery Dodd MD 112 [facility] 110 [place], [place] [phone] Social History Tobacco Use Types Packs/Day Years [...] documented as of this encounter Care Teams Twister Doffer Relationship Specialty Start Date End Date Rosmery Dodd MD [address] [place] [address] [address] PCP - General Family Medicine 09/15/22 Rosmery Dodd MD 112 [place] [facility] 110 [place] [address] PCP - ACO Reach 09/15/22 Elva Viera LPN [address] [place] [address] [address] 07/12/24 documented as of this encounter
--- OUTSIDE RECORDS SUMMARY | 2024-11-06 12:43 | XMS_ITS | Clinical Summary ---
Author Organization [facility] Address [address] [place], [place] [phone] Care Team Providers Care Form Block Maker Name Role Phone Unavailable Primary Care Provider Unavailabl e Allergies Active Allergy Reactions Criticality Noted Date Comments Penicillins Swelling 09/17/2020 Medications diclofenac, EC, (VOLTAREN) 75 mg EC tablet 01/19/2021 Active gabapentin (NEURONTIN) 300 mg capsule 02/10/2021 Active omeprazole (PRILOSEC) 40 mg capsule 02/08/2021 Active buPROPion XL (WELLBUTRIN XL) 150 mg 24 hr tablet TAKE 1 TABLET BY MOUTH EVERY DAY IN THE MORNING FOR 90 DAYS 07/12/2021 Active aspirin, enteric coated (ASPIRIN, ENTERIC COATED) 81 mg EC tablet Aspirin Active 81 MG PO Daily October 21, 2020 10:56am 10/21/2020 Active Social History Tobacco Use Types Packs/Day Years Used Date Smoking Tobacco: Every Day Smokeless Tobacco: Never Alcohol Use Standard Drinks/Week Comments Yes 0 (1 standard drink = 0.6 oz pur e alcohol) PHQ-2 Answer Date Recorded PHQ-2 score 2 07/16/2021 Comments No Sex and Gender Information Value Date Recorded Sex Assigned at Female 05/20/2021 8:31 AM EST Legal Sex Female 12:38 PM EDT Gender Identity Female 05/20/2021 8:31 AM EST Sexual Orientation Straight 05/20/2021 8: 32 AM EST Last Filed Vital Signs Vital Sign Reading Time Taken Comments Blood Pressure 136/69 07/21/2021 2:26 PM EDT Pulse 85 07/21/2021 2:26 PM EDT Temperature - - Respiratory Rate 18 07/21/2021 2:26 PM EDT Oxygen Saturation 99% 07/21/2021 2:26 PM EDT Inhaled Oxygen Concentration - - Weight 82.3 kg (181 lb 8 oz) 07/21/2021 2:26 PM EDT Height 147.5 cm (4' 10.07 ) 07/21/2021 2:26 PM E DT Body Mass Index 37.84 07/21/2021 2:26 PM EDT Plan of Treatment Health Maintenance Due Date Last Done Comments Anxiety Screening 1968 Depression Screening 1968 Hepatitis C Screening 1968 DTaP,Tdap,Td Vaccine (1 - Tdap) [address] Colonography 1995 Cologuard (FIT-DNA) 1995 Colonoscopy 1995 Colorectal Cancer Screening 1995 Diabetes Screening 1995 Fecal Occult Blood 1995 Lipid Screening 1995 Sigmoidoscopy 1995 Shingrix Vaccine (1 of 2) 2000 Bone Density Screening 2015 Covid-19 Vaccine (3 - 2023-2 5 season) 2023 02/23/2021, 06/29/2020 Advance Directive Discussion 04/24/2024 Influenza Vaccine (#1) 2024 , 02/21/2020, 02/05/2020, Additional history exists RSV Vaccine (1 - 1-dose 75+ series) 2025 Pneumococcal Vaccine: 50+ Completed 03/12/2018, Insurance MEDICARE [employer] SUPPLEMENT
--- OUTSIDE RECORDS SUMMARY | 2024-11-06 12:43 | XMS_ITS | Encounter Summary ---
Author Organization [facility] Address [address] [phone] Care Team Providers Care Deputy Chief Magistrate Name Role Phone Unavailable Primary Care Provider Unavailabl e Source Comments In the event this information is protected by the Federal Confidentiality of Alcohol and Drug AbusePatient Records regulations: The Federal rules restrict any use of the information to criminally investigate or prosecute any alcohol or drug abuse patient.[facility] Encounter Details Date Type Department Care Team (Late st Contact Info) Description 08/18/2021 Get Medical Advice [facility] [address] [phone] Georges Urias MD 9500 [facility] [address] [place] [address] Sending fax information Social History Tobacco Use Types Packs/Day Years [...] Exposure Response Date Recorded In the last 10 days, have julio césar u been in contact with someone who was confirmed or suspected to have Coronavirus/COVID-19? No / Unsure 07/21/2021 2:16 PM EDT documented as of this encounter Plan of Treatment Not on file documented as of this encounter Visit Diagnoses Not on filedocumented in this encounter
--- OUTSIDE RECORDS SUMMARY | 2024-11-06 12:43 | XMS_ITS | Patient Health Record ---
Author Organization [facility] Address [address] [place] [address] Care Team Providers Care Retinal Angiographer Name Role Phone Dr Sesar Gibbs Unavailable [phone] Reason For Referral No Information Problems Problem Type SNOMED Code ICD Code Onset Dates Problem Status W/U Status Risk Notes Problem Lumbosacral plexus disorders (G54.1) 09/22/2018 Active confirmed Plan Of Treatment No Information Insurance Providers Payer Name Payer Address Payer Phone Subscriber Number Group Number Insured Name Patient Relationship to Insured Coverage Start Date Coverage End Date [place] [address] [address] [id number] Sonali Umaña Self - patient is the insured [employer] Suppl (Secondary ) [address] [address] [place] [address] [id number] PLAN G Leeroy Sonali Self - patient is the insured
--- OUTSIDE RECORDS SUMMARY | 2024-11-06 12:43 | XMS_ITS | Encounter Summary ---
Author Organization [facility] Address [address] [place] [address] Care Team Providers Care Electric Motor Winders Assembler Name Role Phone Unavailable Primary Care Provider Unavailabl e Source Comments In the event this information is protected by the Federal Confidentiality of Alcohol and Drug AbusePatient Records regulations: The Federal rules restrict any use of the information to criminally investigate or prosecute any alcohol or drug abuse patient.[facility] Encounter Details Date Type Department Care Team (Late st Contact Info) Description 08/08/2021 Get Medical Advice [facility] [place] [address] [phone] Georges Urias MD 9500 [facility] [address] [place] [address] Hip injection Social History Tobacco Use Types Packs/Day Years [...] Recorded In the last 10 days, have yo u been in contact with someone who was confirmed or suspected to have Coronavirus/COVID-19? No / Unsure 07/21/2021 2:16 PM EDT documented as of this encounter Plan of Treatment Not on file documented as of this encounter Visit Diagnoses Diagnosis Spondylolysis- Primary Acquired spondylolisthesis Pain in left hip Pain in joint, pelvic region and thigh documented in this encounter
--- NOTE | 2024-11-06 12:46 | MM_ITS ---
Patient Name: HIRA POLO MR#: [id number] : 1950 Exam Date: 11/06/2024 Ordering Doctor: DR ADONIS BHATTI RADIOLOGY REPORT PROCEDURE: MM TOMOSYNTHESIS SCREENING BI COMPARISON: MM TOMOSYNTHESIS SCREENING BI, 08/16/2023. MG MAMM SCREEN 3D KECIA CAD, 06/29/2022. MG MAMM SCREEN 3D KECIA CAD, 02/26/2021. MG MAMM KECIA SCRN W CAD DIG, 04/08/2014. INDICATIONS: screening for malignant neoplasm of breast Calculator Name NCI Breast Cancer Risk Assessment Tool 5 Year Breast Cancer Risk 2.00% Lifetime Breast Cancer Risk 4.50% Personal Breast Cancer No Personal Ovarian Cancer No Treatments None Family Cancers Father with stomach cancer at age 68; Mother with lymphoma cancer at age 83; Sister with throat cancer at age 55. LOCATION: [facility] BREAST COMPOSITION: The breasts are almost entirely fatty. FINDINGS: RIGHT BREAST: No significant suspicious finding. LEFT BREAST: No significant suspicious finding. DIAGNOSTIC CATEGORY 1--NEGATIVE. RECOMMENDATIONS: ROUTINE MAMMOGRAM AND CLINICAL EVALUATION IN 12 MONTHS. PLEASE NOTE: A NORMAL MAMMOGRAM DOES NOT EXCLUDE THE POSSIBILITY OF BREAST CANCER. A CLINICALLY SUSPICIOUS PALPABLE LUMP SHOULD BE BIOPSIED. Dictated by: Rylan Gayle DO on 11/07/2024 at 08:13 Approved by: Rylan Gayle DO on 11/07/2024 at 08:15
--- NOTE | 2024-11-06 12:48 | CT_ITS ---
The [address] [address] Patient Name: HIRA POLO MRN: [id number] date: 1950 Sex: F Assigned Patient Location: [facility] Current Patient Location: [facility] Accession/Order Number: [id number] Exam Date: 11/06/2024 14:58 Report Date: 11/06/2024 15:02 At the request of: ADONIS RAMÍREZ Procedure: CT lung screening low-dose CT Chest lung screening without contrast TECHNIQUE: Axial imaging with 2-D reconstruction. The CT exam was performed using one or more the following dose reduction techniques: Automated exposure control, adjustment of the MA and/or Kv according to patient size, or use of the iterative reconstruction technique. History: Chronic cough. Current smoker COMPARISON: 08/16/2023 THYROID: Unremarkable TRACHEA AND BRONCHI: Patent ESOPHAGUS: Unremarkable. HEART: Within normal limits PERICARDIAL EFFUSION: None CORONARY ARTERY CALCIFICATION: None MEDIASTINUM: Calcified lymph nodes PULMONARY RACHEL: Calcified hilar lymph nodes. THORACIC AORTA Unremarkable LUNG NODULE and granulomatous changes. No developing lung nodule. LUNGS: The basilar scarring. PLEURAL EFFUSION: None PNEUMOTHORAX: No pneumothorax seen. CHEST WALL: No abnormality AXILLA:Unremarkable BONY STRUCTURES Intact UPPER ABDOMEN: Moderate hiatal hernia CT/CT lung screening low-dose IMPRESSION: No visible lung nodule. No new or enlarging lung nodule FINAL ASSESSMENT: Negative. Lung-RADS Version 1.0 Assessment Category: 1 REMARKS: Continued annual screening with LDCT in 12 months is recommended. Impression dictated by: Rylan Gayle M.D. 11/06/2024 3:02 PM Dictation Location: [place] [address] Electronically authenticated by: [id number] Y Date: 11/06/2024 15:02
== END 2024-11-06 12:31 | disposition home or self-care (01) ==
PROVIDERS: PCP Family Medicine; Visit Provider Physician Assistant
DX: Z12.31 Encounter for screening mammogram for malignant neoplasm of breast (principal); Z87.891 Personal history of nicotine dependence; Z80.0 Family history of malignant neoplasm of digestive organs; Z80.7 Family history of other malignant neoplasms of lymphoid, hematopoietic and related tissues; Z80.8 Family history of malignant neoplasm of other organs or systems
CPT/HCPCS: 71271; 77063; 77067